=== PATIENT | male | born 1965 | race Caucasian/White ===

== ENCOUNTER 2018-06-14 18:55 | Inpatient (IN) | payer OTHER ==
[2018-06-14 20:03] VITALS: BMI 25.7
--- NOTE | 2018-06-14 22:12 | HP ---
CIWA Score Nausea/Vomitin-No Nausea/No Vomiting Muscle Tremors: 1-None Visible, but [place] Anxiety: 1-Mildly Anxious Agitation: 1-Slight > Activity Paroxysmal Sweats: 4-Forehead w/Sweat Beads Orientation: 2-Disoriented Date<2 days Tacttile Disturbances: 0-None Auditory Disturbances: 0-None Visual Disturbances: 0-None Headache: 0-None Present CIWA-Ar Total Score: 9 - Admission Criteria OASAS Guidelines: Admission for Medically Managed Detox: Requires at least one of the followin. CIWA greater than 12 2. Seizures within the past 24 hours 3. Delirium tremens within the past 24 hours 4. Hallucinations within the past 24 hours 5. Acute intervention needed for co occurring medical disorder 6. Acute intervention needed for co occurring psychiatric disorder 7. Severe withdrawal that cannot be handled at a lower level of care (continued vomiting, continued diarrhea, abnormal vital signs) requiring intravenous medication and/or fluids 8. Admission ROS [facility] Chief Complaint: c/o worsening withdrawal sx's. seeking assist w/ detox Allergies/Adverse Reactions: Allergies Allergy/AdvReac Type Severity Reaction Status Date / Time Penicillins Allergy Severe Verified 06/14/18 19:45 History of Present Illness: 53 Y.O. MALE WITH OPIOID AND ALCOHOL DEPENDENCE HERE FOR DETOX. CLIENT REPORTS HE IS ON MMTP AT [facility]. LDM TODAY 45 MG, PENDING VERIFICATION. HE PRESENTS INTOXICATED WITH C/O WORSENING WITHDRAWAL SX'S SO HE KEEP S DRINKING. CIWA IS 9/ CHAU NOW 0.249. HE DENIES HX/O SEIZURES BUT DOES ADMIT TO BLACKING OUT. DENIES HX/O SI/HI, AVH. REPORTS LONGEST CLEAN TIME 4 YEARS RELAPSING 1 YEAR AGO. LIVES ALONE, SSI, DENIES LEGALS CLIENT IS A POOR HISTORIAN DUE TO HIS INTOXICATION PMHX- HEPATITIS C NO TXMENT PSYCH- DEPRESSION, ANXIETY Exam Limitations: Intoxication - Ebola screening Have you traveled outside of the country in the last 21 days: No Have you had contact with anyone from an Ebola affected area: No Have you been sick,other than usual withdrawal symptoms: No Do you have a fever: No - Review of Systems Constitutional: Chills, Loss of Appetite, Night Sweats, Changes in sleep EENT: reports: Dental Problems (MISSING TEETH) Respiratory: reports: No Symptoms reported Cardiac: reports: No Symptoms Reported GI: reports: Poor Appetite, Poor Fluid Intake : reports: No Symptoms Reported Musculoskeletal: reports: Back Pain (CHRONIC) Integumentary: reports: Flushing, Sweating Neuro: reports: Tremors (R/T WITHDRAWALS) Endocrine: reports: No Symptoms Reported Hematology: reports: No Symptoms Reported Psychiatric: reports: Anxious, Depressed Other Systems: Reviewed and Negative Patient History - Patient Medical History Hx Anemia: No Hx Asthma: No Hx Chronic Obstructive Pulmonary Disease (COPD): No Hx Cancer: No Hx Cardiac Disorders: No Hx Congestive Heart Failure: No Hx Hypertension: No Hx Hypercholesterolemia: No Hx Pacemaker: No HX Cerebrovascular Accident: No Hx Seizures: No Hx Dementia: No Hx Diabetes: No Hx Gastrointestinal Disorders: No Hx Liver Disease: Yes (HEPATITIS C) Hx Genitourinary Disorders: No Hx Sexually Transmitted Disorders: No Hx Renal Disease (ESRD): No Hx Thyroid Disease: No Hx Human Immunodeficiency Virus (HIV): No Hx Hepatitis C: Yes Hx Depression: Yes Hx Suicide Attempt: No Hx Bipolar Disorder: No Hx Schizophrenia: No - Patient Surgical History Past Surgical History: Yes Hx Neurologic Surgery: No Hx Cataract Extraction: No Hx Cardiac Surgery: No Hx Lung Surgery: No Hx Breast Surgery: No Hx Breast Biopsy: No Hx Abdominal Surgery: No Hx Appendectomy: No Hx Cholecystectomy: No Hx Genitourinary Surgery: No Hx Section: No Hx Orthopedic Surgery: Yes (RLE AND JAW SX) Anesthesia Reaction: No - PPD History Previous Implant?: Yes Documented Results: Negative w/o proof Implanted On Prior R Admission?: No PPD to be Administered?: Yes - Smoking Cessation Smoking history: Current every day smoker Have you smoked in the past 12 months: Yes Aproximately how many cigarettes per day: 12 Cigars Per Day: 0 Hx Chewing Tobacco Use: No Initiated information on smoking cessation: Yes 'Breaking Loose' booklet given: 06/14/18 - Substance & Tx. History Hx Alcohol Use: Yes Hx Substance Use: Yes Substance Use Type: Alcohol Hx Substance Use Treatment: Yes ([facility]) - Substances Abused Alcohol Route: Oral Frequency: Daily Amount used: LIQUOR- 3 PINTS Age of first use: 10 Date of Last Use: 06/14/18 Family Disease History - Family Disease History Family Disease History: Diabetes: Mother (), Other: Mother Admission Physical Exam [facility] - Vital Signs Vital Signs: Vital Signs - 24 hr 06/14/18 19:27 Temperature 97.7 F Pulse Rate 90 Respiratory 18 Rate Blood Pressure 123/81 - Physical General Appearance: Yes: Disheveled, Mild Distress, Alcohol on Breath, Intoxicated, Tremorous, Irritable, Sweating, Anxious, Other (PRESENTS WITH NO SHIRT JUST A JACKET PERIODS OF KNODDING OFF DURING INTERVIEW) HEENTM: Yes: EOMI, Normocephalic, Normal Voice, HUMA, Pharynx Normal, Scleral Ictenus R, Scleral Ictenus L, Other (POOR DENTITION) Respiratory: Yes: Chest Non-Tender, Lungs Clear, Normal Breath Sounds, No Respiratory Distress, No Accessory Muscle Use Neck: Yes: No masses,lesions,Nodules, Supple, Trachea in good position Breast: Yes: Breast Exam Deferred Cardiology: Yes: Regular Rhythm, Regular Rate, S1, S2 Abdominal: Yes: Normal Bowel Sounds, Non Tender, Soft, Protuberent Genitourinary: Yes: Other (NO C/O OFFERED) Back: Yes: Normal Inspection Musculoskeletal: Yes: Other (UNSTEADY GAIT) Neurological: Yes: Alert (WITH PERIODS OF KNODDING OFF/EASILY AROUSABLE), Motor Strength 5/5, Confused (ABOUT DATE), Depressed Affect Integumentary: Yes: Warm, Moist, Other (FLUSHED) Lymphatic: Yes: Within Normal Limits - Diagnostic (1) Alcohol dependence with uncomplicated withdrawal Current Visit: Yes Status: Acute (2) Methadone maintenance therapy patient Current Visit: Yes Status: Chronic (3) Cannabis abuse Current Visit: Yes Status: Acute (4) Hepatitis C Current Visit: Yes Status: Chronic Qualifiers: Viral hepatitis chronicity: chronic Hepatic coma status: without hepatic coma Qualified Code(s): B18.2 - Chronic viral hepatitis C (5) Substance induced mood disorder Current Visit: Yes Status: Suspected (6) At risk for dehydration due to poor fluid intake Current Visit: Yes Status: Acute (7) Intoxication Current Visit: Yes Status: Acute (8) Nicotine dependence Current Visit: Yes Status: Acute Qualifiers: Nicotine product type: cigarettes Substance use status: uncomplicated Qualified Code(s): F17.210 - Nicotine dependence, cigarettes, uncomplicated (9) Need for assistance due to unsteady gait Current Visit: Yes Status: Acute (10) Scleral icterus Current Visit: Yes Status: Acute Cleared for Admission [facility] - Detox or Rehab [facility] Level of Care: Medically Managed Detox Regimen/Protocol: Librium Claeared for Rehab Admission: No Urine Drug Screen - Results Drug Screen Negative: No Urine Drug Screen Results: THC-Marijuana, OPI-Opiates, BZO-Benzodiazepines, MTD- Methadone
[2018-06-14] MEDS ORDERED: MAGNESIUM CITRATE 300 ML BOTTLE PO PRN (22:31)
[2018-06-14] MEDS ORDERED: guaiFENesin/D-METHORPHAN HB 10 ML UNIT-DOSE CUPS PO PRN (22:31)
[2018-06-14] MEDS ORDERED: MAGNESIUM HYDROX 2400MG/30ML ORAL SUSPENSION 30 ML CUP PO PRN (22:31)
[2018-06-14] MEDS ORDERED: chlordiazePOXIDE HCL 25 MG CAPSULE PO PRN (22:31)
[2018-06-14] MEDS ORDERED: ACETAMINOPHEN 325 MG TABLET (FP) PO PRN (22:31)
[2018-06-14] MEDS ORDERED: MAG HYDROX/AL HYDROX/SIMETH 30 ML UNIT-DOSE CUP PO PRN (22:31)
[2018-06-14] MEDS ORDERED: LOPERAMIDE HCL 2 MG CAPSULE PO PRN (22:31)
[2018-06-14] MEDS ORDERED: MENTHOL/PHENOL 1 EACH UD MM PRN (22:31)
[2018-06-14] MEDS ORDERED: IBUPROFEN 400 MG TABLET (FP) PO PRN (22:31)
[2018-06-14] MEDS ORDERED: NICOTINE POLACRILEX 2 MG GUM BC PRN (22:31)
[2018-06-14] MEDS ORDERED: P-EPHED 60MG/TRIPROLIDI 2.5MG TABLET PO PRN (22:31)
[2018-06-14] MEDS ORDERED: hydrOXYzine PAMOATE 50 MG CAPSULE (FP) PO PRN (22:31)
[2018-06-15] MEDS: chlordiazePOXIDE HCL 25 MG CAPSULE PO SCH ×4 (06:08→22:32)
[2018-06-15] MEDS: PRENATAL VITAMINS W/ FOLIC ACID TABLET (FP) PO SCH (10:08)
[2018-06-15] MEDS: NICOTINE 14 MG/24 HOURS TOPICAL PATCH TD SCH (10:11)
[2018-06-15 11:11] LABS: HEMOGLOBIN 12.3 GM/dL (11.7-16.9); MCH 32.5 pg (25.7-33.7); MCHC 32.2 g/dl (32.0-35.9); MEAN CELL VOLUME 100.9 fl (80-96); MEAN PLT VOLUME 11.7 fl (7.5-11.1); PLATELET COUNT 78 K/MM3 (134-434); RBC 3.77 M/mm3 (4.00-5.60); RDW 12.9 % (11.9-15.9); WHITE BLOOD COUNT 11.6 K/mm3 (4.0-10.0)
[2018-06-15 11:42] LABS: ALBUMIN 2.1 g/dl (3.4-5.0); ALK PHOS 134 U/L (45-117); ANION GAP 9 MMOL/L (8-16); BILIRUBIN,TOTAL 2.9 mg/dL (0.2-1); BLOOD UREA NITROGEN 14 mg/dL (7-18); CALCIUM 7.5 mg/dL (8.5-10.1); CHLORIDE 101 mmol/L (98-107); CO2 30 mmol/L (21-32); CREATININE 0.6 mg/dL (0.55-1.3); GLUCOSE,RANDOM 91 mg/dL (74-106); SGOT/AST 245 U/L (15-37); SGPT/ALT 73 U/L (13-61); SODIUM 139 mmol/L (136-145); TOT PROT 5.8 g/dl (6.4-8.2)
[2018-06-15] MEDS ORDERED: NAPROXEN 375 MG TABLET (FP) PO ONE (11:49)
[2018-06-15 13:04] LABS: POTASSIUM 2.8 mmol/L (3.5-5.1)
--- NOTE | 2018-06-15 13:28 | EKG ---
Test Reason : Blood Pressure : / mmHG Vent. Rate : 062 BPM Atrial Rate : 062 BPM P-R Int : 140 ms QRS Dur : 094 ms QT Int : 582 ms P-R-T Axes : 032 017 008 degrees QTc Int : 590 ms NORMAL SINUS RHYTHM T WAVE ABNORMALITY, CONSIDER ANTERIOR ISCHEMIA PROLONGED QT ABNORMAL ECG NO PREVIOUS ECGS AVAILABLE Confirmed by HERNAN GARCIA MD ([id number]) on 06/15/2018 1:28:24 PM Referred By: Confirmed By:HERNAN GARCIA MD
--- NOTE | 2018-06-15 13:41 | CONSULT ---
[facility] Psychiatric Consult - Data Date of interview: 06/15/18 Admission source: [facility] Identifying data: First admission to [facility] for this 53 y/o male seeking detoxification treatment, on , for alcohol dependence. Patient is single, no dependents, domiciled, unemployed and supported on SSI benefits. Substance Abuse History: Confirmed by the patient in this interview. Details in current [facility] report : Smoking history: Current every day smoker. Have you smoked in the past 12 months: Yes. Aproximately how many cigarettes per day: 12. Cigars Per Day: 0. Hx Chewing Tobacco Use: No. Initiated information on smoking cessation: Yes. 'Breaking Loose' booklet given: 06/14/18. - Substance & Tx. History. Hx Alcohol Use: Yes. Hx Substance Use: Yes. Substance Use Type : Alcohol. Hx Substance Use Treatment: Yes ([facility]). - Substances Abused. * * Alcohol. Route: Oral. Frequency: Daily. Amount used: LIQUOR- 3 PINTS. Age of first use: 10. Date of Last Use: 06/14/18 Medical History: Hepatitis C, chronic lumbar pain, history of orthosurgery ( fracture of right lower mandible) and arthritis. Psychiatric History: No reported history of psychiatric hospitalizations. Patient reports recent treatment with amitryptiline 25 mg/hs + clonazepam 1 mg/ day. Diagnosed with MDD and Anxiety Disorder. Mr Romano is also on methadone maintenance (40 mg/day) at [facility]. Admits to chronic non-adherence to psychotropic medications. Patient denies history of suicide attempts. Physical/Sexual Abuse/Trauma History: Patient denies. Additional Comment: Urine Drug Screen Results: THC-Marijuana, OPI-Opiates, BZO- Benzodiazepines, MTD-Methadone. Noted. Mental Status Exam - Mental Status Exam Alert and Oriented to: Time, Person Cognitive Function: Grossly Intact (admits to memory problems ; disoriented to place but able to answer simple questions ) Patient Appearance: Unkempt, Disheveled (ethylic smell) Mood: Nervous, Withdrawn Affect: Mood Congruent, Constricted Patient Behavior: Fatigued, Cooperative Speech Pattern: Delayed, Slurred Voice Loudness: Mildly Soft/Quiet Thought Process: Goal Oriented Thought Disorder: Not Present Hallucinations: Denies Suicidal Ideation: Denies Homicidal Ideation: Denies Insight/Judgement: Poor Sleep: Well Appetite: Good Muscle strength/Tone: Normal Gait/Station: Normal Psychiatric Findings - Problem List ([place] 1, 2,3) (1) Alcohol dependence with uncomplicated withdrawal Current Visit: Yes Status: Acute (2) Opioid dependence on agonist therapy Current Visit: Yes Status: Chronic (3) Nicotine dependence Current Visit: Yes Status: Chronic Qualifiers: Nicotine product type: cigarettes Substance use status: uncomplicated Qualified Code(s): F17.210 - Nicotine dependence, cigarettes, uncomplicated (4) Substance induced mood disorder Current Visit: Yes Status: Chronic - Initial Treatment Plan Initial Treatment Plan: Psychoeducation. Sleep hygiene. Detoxification. Support. Observation.
[2018-06-15] MEDS ORDERED: POTASSIUM CHLORIDE TABS 20 MEQ TABLET.ER (FP) PO ONE (14:12)
[2018-06-15] MEDS ORDERED: cloNIDine HCL 0.1 MG TABLET PO ONE (14:19)
--- NOTE | 2018-06-15 14:22 | PN ---
[facility] CIWA - CIWA Score Nausea/Vomitin-No Nausea/No Vomiting Muscle Tremors: 4-Moderate,w/Arms Extend Anxiety: 5 Agitation: 3 Paroxysmal Sweats: No Perspiration Orientation: 2-Disoriented Date<2 days Tacttile Disturbances: 3-Moderate Itch/Numb/Burn Auditory Disturbances: 0-None Visual Disturbances: 1-Very Mild Sensitivity Headache: 0-None Present CIWA-Ar Total Score: 18 S Progress Note (SOAP) Subjective: Tremors, Diarrhea, Body Aches. Patient reports pain in bilateral upper legs for last 4 -5 days. Patient denies pain in bilateral lower legs or feet. Patient denies any unusual urinary symptoms (burning, pain, frequency, urgency, visualization of blood in urine). Objective: PATIENT A & O X 2 (UNCERTAIN ABOUT CURRENT DAY / DATE). PATIENT OBSERVED AMBULATING ON UNIT. NO ACUTE DISTRESS. 06/15/18 14:18 Vital Signs Temperature 99.3 F 06/15/18 14:01 Pulse Rate 65 06/15/18 14:01 Respiratory Rate 18 06/15/18 14:01 Blood Pressure 154/79 06/15/18 14:01 O2 Sat by Pulse Oximetry (%) Laboratory Tests 06/15/18 06/15/18 06/15/18 07:30 07:30 07:30 WBC 11.6 H RBC 3.77 L Hgb 12.3 Hct 38.0 MCV 100.9 H MCH 32.5 MCHC 32.2 RDW 12.9 Plt Count 78 L MPV 11.7 H Sodium 139 Potassium 2.8 L* Chloride 101 Carbon Dioxide 30 Anion Gap 9 BUN 14 Creatinine 0.6 Creat Clearance w eGFR > 60 Random Glucose 91 Calcium 7.5 L Total Bilirubin 2.9 H AST 245 H ALT 73 H Alkaline Phosphatase 134 H Total Protein 5.8 L Albumin 2.1 L RPR Titer Nonreactive LABS NOTED. Assessment: 06/15/18 14:18 WITHDRAWAL SYMPTOMS. HYPOKALEMIA. LEUKOCYTOSIS. THROMBOCYTOPENIA. 06/15/18 14:22 Plan: CONTINUE DETOX. INCREASE DAILY PO FLUID INTAKE. K-DUR BID FOR HYPOKALEMIA. REPEAT K LEVEL ON 06/17/2018 TO DETERMINE EFFECT OF K -DUR ON HYPOKALEMIA. REPEAT CBC TOMORROW AM FOR LOW WBC AND PLATELET LEVELS. REPEAT AST LEVEL ON 06/17/2018 FOR ELEVATED ADMISSION LEVEL. DESPITE REPEATED ATTEMPTS BY RN TO CONTACT PATIENT'S MMTP PROGRAM ([facility]) VIA TELEPHONE TO VERIFY PATIENT'S REPORTED DAILY MMTP DOSE (45 MG), DOSE UNABLE TO BE VERIFIED TODAY. THEREFORE, STANDARD DOSE OF 20 MG PO DAILY ORDERED TEMPORARY MAINTENANCE FOR TODAY AND FOR TOMORROW (SUNDAY) UNTIL MMTP PROGRAM WILL BE AVAILABLE TO BE CONTACTED AGAIN ON SUNDAY, . PATIENT MADE AWARE. CLONIDINE, 0.1 MG PO X 1 DOSE ORDERED TO HELP EASE WITHDRAWAL SYMPTOMS AND FOR ELEVATED SYSTOLIC BP.
[2018-06-15] MEDS: METHADONE HCL 10 MG TABLET PO SCH (15:16)
[2018-06-15] MEDS: POTASSIUM CHLORIDE TABS 20 MEQ TABLET.ER (FP) PO SCH (17:22)
[2018-06-15] MEDS: NAPROXEN 375 MG TABLET (FP) PO SCH (22:32)
[2018-06-15] MEDS: THIAMINE HCL 100 MG TABLET (FP) PO SCH (22:33)
[2018-06-15] MEDS: MELATONIN 5 MG TABLETS PO PRN (22:33)
[2018-06-16] MEDS: chlordiazePOXIDE HCL 25 MG CAPSULE PO SCH ×4 (05:46→22:09)
[2018-06-16] MEDS: METHADONE HCL 10 MG TABLET PO SCH (05:46)
[2018-06-16] MEDS: POTASSIUM CHLORIDE TABS 20 MEQ TABLET.ER (FP) PO SCH ×2 (10:14→17:21)
[2018-06-16] MEDS: PRENATAL VITAMINS W/ FOLIC ACID TABLET (FP) PO SCH (10:15)
[2018-06-16] MEDS: NICOTINE 14 MG/24 HOURS TOPICAL PATCH TD SCH (10:15)
[2018-06-16] MEDS: NAPROXEN 375 MG TABLET (FP) PO SCH ×2 (10:15→22:08)
[2018-06-16 10:40] LABS: BASO % 0.9 % (0-2.0); HEMATOCRIT 38.9 % (35.4-49); HEMOGLOBIN 13.9 GM/dL (11.7-16.9); LYMPH % 22.5 % (8-40); MCH 35.3 pg (25.7-33.7); MCHC 35.7 g/dl (32.0-35.9); MEAN CELL VOLUME 99.1 fl (80-96); MEAN PLT VOLUME 12.6 fl (7.5-11.1); MONO % 5.9 % (3.8-10.2); NEUT % 68.7 % (42.8-82.8); PLATELET COUNT 96 K/MM3 (134-434); RBC 3.93 M/mm3 (4.00-5.60); RDW 13.1 % (11.9-15.9); WHITE BLOOD COUNT 8.6 K/mm3 (4.0-10.0)
--- NOTE | 2018-06-16 11:28 | EKG ---
Test Reason : Blood Pressure : / mmHG Vent. Rate : 050 BPM Atrial Rate : 050 BPM P-R Int : 144 ms QRS Dur : 092 ms QT Int : 558 ms P-R-T Axes : 034 014 014 degrees QTc Int : 508 ms SINUS BRADYCARDIA PROLONGED QT ABNORMAL ECG WHEN COMPARED WITH ECG OF 15-JUN-2018 06:22, T WAVE INVERSION NO LONGER EVIDENT IN ANTERIOR LEADS QT HAS SHORTENED Confirmed by JOSE HERMOSILLO, HERNAN ([id number]) on 06/16/2018 11:28:00 AM Referred By: Confirmed By:HERNAN GARCIA MD
--- NOTE | 2018-06-16 12:53 | PN ---
[facility] CIWA - CIWA Score Nausea/Vomitin-Mild Nausea/No Vomiting Muscle Tremors: 3 Anxiety: 3 Agitation: 3 Paroxysmal Sweats: 3 Orientation: 0-Oriented Tacttile Disturbances: 0-None Auditory Disturbances: 0-None Visual Disturbances: 0-None Headache: 0-None Present CIWA-Ar Total Score: 13 [facility] Progress Note (SOAP) Subjective: Chills, sweating, tremor, interrupted sleep Objective: 06/16/18 12:48 Last Vital Signs Temp Pulse Resp BP Pulse Ox 97.6 F 50 L 18 153/89 06/16/18 09:50 06/16/18 09:50 06/16/18 09:50 06/16/18 09:50 elevated b/p noted: 153/89 Laboratory Tests 06/15/18 06/15/18 06/15/18 07:30 07:30 07:30 WBC 11.6 H RBC 3.77 L Hgb 12.3 Hct 38.0 MCV 100.9 H MCH 32.5 MCHC 32.2 RDW 12.9 Plt Count 78 L MPV 11.7 H Absolute Neuts (auto) Neutrophils % Lymphocytes % Monocytes % Eosinophils % Basophils % Nucleated RBC % Sodium 139 Potassium 2.8 L* Chloride 101 Carbon Dioxide 30 Anion Gap 9 BUN 14 Creatinine 0.6 Creat Clearance w eGFR > 60 Random Glucose 91 Calcium 7.5 L Total Bilirubin 2.9 H AST 245 H ALT 73 H Alkaline Phosphatase 134 H Total Protein 5.8 L Albumin 2.1 L RPR Titer Nonreactive 06/16/18 07:30 WBC 8.6 RBC 3.93 L Hgb 13.9 Hct 38.9 MCV 99.1 H MCH 35.3 H MCHC 35.7 RDW 13.1 Plt Count 96 L D MPV 12.6 H Absolute Neuts (auto) 5.9 Neutrophils % 68.7 Lymphocytes % 22.5 Monocytes % 5.9 Eosinophils % 2.0 Basophils % 0.9 Nucleated RBC % 0 Sodium Potassium Chloride Carbon Dioxide Anion Gap BUN Creatinine Creat Clearance w eGFR Random Glucose Calcium Total Bilirubin AST ALT Alkaline Phosphatase Total Protein Albumin RPR Titer Labs reviewed: K 2.8, AST 245, total bilirubin 2.9 Assessment: 06/16/18 12:50 Withdrawal symptoms Noted with elevated blood pressure, hypokalemia and elevated LFTs (AST, total bilirubin) Plan: Continue detox Encouraged PO water intake Elevated blood pressure: clonidine 0.1mg PO q8hr prn if b/p > 140/90 Hypokalemia: continue replenishment, follow up on repeated serum K level Elevated LFTs (AST, total bilirubin): most likely related to alcohol dependence , repeat AST level (already ordered), repeat total bilirubin level, follow up on result
[2018-06-16] MEDS ORDERED: cloNIDine HCL 0.1 MG TABLET PO PRN (12:55)
[2018-06-16] MEDS: THIAMINE HCL 100 MG TABLET (FP) PO SCH (22:07)
[2018-06-16] MEDS: MELATONIN 5 MG TABLETS PO PRN (22:09)
[2018-06-17] MEDS: chlordiazePOXIDE 5 MG CAPSULE PO SCH ×4 (05:06→22:18)
[2018-06-17] MEDS ORDERED: METHADONE HCL 40 MG DISPERSABLE TABLET ONE (09:32)
[2018-06-17] MEDS ORDERED: METHADONE HCL 5 MG TABLET ONE (09:33)
[2018-06-17] MEDS ORDERED: METHADONE HCL 10 MG TABLET PO ONE (10:00)
[2018-06-17] MEDS ORDERED: METHADONE 40 MG, METHADONE 5 MG PO ONE (10:00)
[2018-06-17] MEDS: NAPROXEN 375 MG TABLET (FP) PO SCH ×2 (10:19→22:17)
[2018-06-17] MEDS: PRENATAL VITAMINS W/ FOLIC ACID TABLET (FP) PO SCH (10:19)
[2018-06-17] MEDS: POTASSIUM CHLORIDE TABS 20 MEQ TABLET.ER (FP) PO SCH (10:19)
[2018-06-17] MEDS: NICOTINE 14 MG/24 HOURS TOPICAL PATCH TD SCH (10:23)
[2018-06-17 10:37] LABS: URINE APPEARANCE CLEAR; URINE COLOR AMBER; URINE GLUCOSE (UA) NEGATIVE (NEGATIVE); URINE KETONE NEGATIVE (NEGATIVE); URINE LEUK ESTERASE NEGATIVE (NEGATIVE); URINE NITRITE NEGATIVE (NEGATIVE); URINE PROTEIN NEGATIVE (NEGATIVE); URINE UROBILINOGEN 4.0 E.U/dl mg/dL (0.2-1.0)
--- NOTE | 2018-06-17 11:19 | PN ---
S Progress Note (SOAP) Subjective: feeling better sleep better at night tremor sweat muscle cramping Objective: 06/17/18 11:17 Vital Signs Temperature 96.8 F L 06/17/18 09:19 Pulse Rate 62 06/17/18 09:19 Respiratory Rate 18 06/17/18 09:19 Blood Pressure 130/83 06/17/18 09:19 O2 Sat by Pulse Oximetry (%) Laboratory Last Values WBC 8.6 K/mm3 (4.0-10.0) 06/16/18 07:30 RBC 3.93 M/mm3 (4.00-5.60) L 06/16/18 07:30 Hgb 13.9 GM/dL (11.7-16.9) 06/16/18 07:30 Hct 38.9 % (35.4-49) 06/16/18 07:30 MCV 99.1 fl (80-96) H 06/16/18 07:30 MCH 35.3 pg (25.7-33.7) H 06/16/18 07:30 MCHC 35.7 g/dl (32.0-35.9) 06/16/18 07:30 RDW 13.1 % (11.9-15.9) 06/16/18 07:30 Plt Count 96 K/MM3 (134-434) L D 06/16/18 07:30 MPV 12.6 fl (7.5-11.1) H 06/16/18 07:30 Absolute Neuts (auto) 5.9 K/mm3 (1.5-8.0) 06/16/18 07:30 Neutrophils % 68.7 % (42.8-82.8) 06/16/18 07:30 Lymphocytes % 22.5 % (8-40) 06/16/18 07:30 Monocytes % 5.9 % (3.8-10.2) 06/16/18 07:30 Eosinophils % 2.0 % (0-4.5) 06/16/18 07:30 Basophils % 0.9 % (0-2.0) 06/16/18 07:30 Nucleated RBC % 0 % (0-0) 06/16/18 07:30 Sodium 139 mmol/L (136-145) 06/15/18 07:30 Potassium 3.6 mmol/L (3.5-5.1) 06/17/18 07:30 Chloride 101 mmol/L (98-107) 06/15/18 07:30 Carbon Dioxide 30 mmol/L (21-32) 06/15/18 07:30 Anion Gap 9 MMOL/L (8-16) 06/15/18 07:30 BUN 14 mg/dL (7-18) 06/15/18 07:30 Creatinine 0.6 mg/dL (0.55-1.3) 06/15/18 07:30 Creat Clearance w eGFR > 60 (>60) 06/15/18 07:30 Random Glucose 91 mg/dL (74-106) 06/15/18 07:30 Calcium 7.5 mg/dL (8.5-10.1) L 06/15/18 07:30 Total Bilirubin 4.0 mg/dL (0.2-1) H 06/17/18 07:30 AST 189 U/L (15-37) H 06/17/18 07:30 ALT 73 U/L (13-61) H 06/15/18 07:30 Alkaline Phosphatase 134 U/L (45-117) H 06/15/18 07:30 Total Protein 5.8 g/dl (6.4-8.2) L 06/15/18 07:30 Albumin 2.1 g/dl (3.4-5.0) L 06/15/18 07:30 Urine Color [place] 06/17/18 07:30 Urine Appearance Clear 06/17/18 07:30 Urine pH 7.0 (5.0-8.0) 06/17/18 07:30 Ur Specific [place] 1.016 (1.010-1.035) 06/17/18 07:30 Urine Protein Negative (NEGATIVE) 06/17/18 07:30 Urine Glucose (UA) Negative (NEGATIVE) 06/17/18 07:30 Urine Ketones Negative (NEGATIVE) 06/17/18 07:30 Urine Blood Negative (NEGATIVE) 06/17/18 07:30 Urine Nitrite Negative (NEGATIVE) 06/17/18 07:30 Urine Bilirubin 2.0 (<2.0 mg/dL) 06/17/18 07:30 Urine Urobilinogen 4.0 e.u/dl mg/dL (0.2-1.0) 06/17/18 07:30 Ur Leukocyte Esterase Negative (NEGATIVE) 06/17/18 07:30 RPR Titer Nonreactive (NONREACTIVE) 06/15/18 07:30 lab noted low calcium Assessment: 06/17/18 11:19 mild withdrawal sx Plan: medically supervised detox
[2018-06-17] MEDS: CALCIUM 250MG/VIT-D 125 UNITS 1 COMBO TABLET PO SCH ×2 (14:21→22:18)
[2018-06-17] MEDS: THIAMINE HCL 100 MG TABLET (FP) PO SCH (22:17)
[2018-06-17] MEDS: MELATONIN 5 MG TABLETS PO PRN (22:18)
[2018-06-18] MEDS ORDERED: METHADONE HCL 40 MG DISPERSABLE TABLET ONE (04:15)
[2018-06-18] MEDS ORDERED: METHADONE HCL 5 MG TABLET ONE (04:15)
[2018-06-18] MEDS: chlordiazePOXIDE HCL 10 MG CAPSULE PO SCH ×4 (05:09→22:20)
[2018-06-18] MEDS: METHADONE 40 MG, METHADONE 5 MG PO SCH (05:10)
[2018-06-18] MEDS ORDERED: METHADONE HCL 10 MG TABLET PO SCH (06:00)
[2018-06-18] MEDS: PRENATAL VITAMINS W/ FOLIC ACID TABLET (FP) PO SCH (10:10)
[2018-06-18] MEDS: POTASSIUM CHLORIDE TABS 20 MEQ TABLET.ER (FP) PO SCH (10:11)
[2018-06-18] MEDS: CALCIUM 250MG/VIT-D 125 UNITS 1 COMBO TABLET PO SCH ×2 (10:11→22:20)
[2018-06-18] MEDS: NICOTINE 14 MG/24 HOURS TOPICAL PATCH TD SCH (10:11)
[2018-06-18] MEDS: NAPROXEN 375 MG TABLET (FP) PO SCH ×2 (10:12→22:20)
--- NOTE | 2018-06-18 15:15 | PN ---
[facility] Progress Note (SOAP) Subjective: Body Aches, Tremors. Patient reports that he feels significantly better at this time than he did at time of admission to Detox Unit. Objective: PATIENT A & O X 3, OBSERVED AMBULATING ON UNIT WITH ASSISTANCE OF A CANE. IN NO ACUTE DISTRESS. 06/18/18 15:17 Vital Signs Temperature 97.6 F 06/18/18 13:22 Pulse Rate 52 L 06/18/18 13:22 Respiratory Rate 20 06/18/18 13:22 Blood Pressure 135/76 06/18/18 13:22 O2 Sat by Pulse Oximetry (%) Laboratory Tests 06/15/18 06/15/18 06/15/18 07:30 07:30 07:30 WBC 11.6 H RBC 3.77 L Hgb 12.3 Hct 38.0 MCV 100.9 H MCH 32.5 MCHC 32.2 RDW 12.9 Plt Count 78 L MPV 11.7 H Absolute Neuts (auto) Neutrophils % Lymphocytes % Monocytes % Eosinophils % Basophils % Nucleated RBC % Sodium 139 Potassium 2.8 L* Chloride 101 Carbon Dioxide 30 Anion Gap 9 BUN 14 Creatinine 0.6 Creat Clearance w eGFR > 60 Random Glucose 91 Calcium 7.5 L Total Bilirubin 2.9 H AST 245 H ALT 73 H Alkaline Phosphatase 134 H Total Protein 5.8 L Albumin 2.1 L Urine Color Urine Appearance Urine pH Ur Specific [place] Urine Protein Urine Glucose (UA) Urine Ketones Urine Blood Urine Nitrite Urine Bilirubin Urine Urobilinogen Ur Leukocyte Esterase RPR Titer Nonreactive 06/16/18 06/17/18 06/17/18 07:30 07:30 07:30 WBC 8.6 RBC 3.93 L Hgb 13.9 Hct 38.9 MCV 99.1 H MCH 35.3 H MCHC 35.7 RDW 13.1 Plt Count 96 L D MPV 12.6 H Absolute Neuts (auto) 5.9 Neutrophils % 68.7 Lymphocytes % 22.5 Monocytes % 5.9 Eosinophils % 2.0 Basophils % 0.9 Nucleated RBC % 0 Sodium Potassium 3.6 Chloride Carbon Dioxide Anion Gap BUN Creatinine Creat Clearance w eGFR Random Glucose Calcium Total Bilirubin 4.0 H AST 189 H ALT Alkaline Phosphatase Total Protein Albumin Urine Color Urine Appearance Urine pH Ur Specific [place] Urine Protein Urine Glucose (UA) Urine Ketones Urine Blood Urine Nitrite Urine Bilirubin Urine Urobilinogen Ur Leukocyte Esterase RPR Titer 06/17/18 06/17/18 07:30 07:30 WBC RBC Hgb Hct MCV MCH MCHC RDW Plt Count MPV Absolute Neuts (auto) Neutrophils % Lymphocytes % Monocytes % Eosinophils % Basophils % Nucleated RBC % Sodium Potassium Chloride Carbon Dioxide Anion Gap BUN Creatinine Creat Clearance w eGFR Random Glucose Calcium Total Bilirubin Cancelled AST ALT Alkaline Phosphatase Total Protein Albumin Urine Color [place] Urine Appearance Clear Urine pH 7.0 Ur Specific [place] 1.016 Urine Protein Negative Urine Glucose (UA) Negative Urine Ketones Negative Urine Blood Negative Urine Nitrite Negative Urine Bilirubin 2.0 Urine Urobilinogen 4.0 e.u/dl Ur Leukocyte Esterase Negative RPR Titer LABS NOTED. Assessment: 06/18/18 15:18 WITHDRAWAL SYMPTOMS. Plan: CONTINUE DETOX.
[2018-06-18] MEDS: THIAMINE HCL 100 MG TABLET (FP) PO SCH (22:20)
[2018-06-18] MEDS: MELATONIN 5 MG TABLETS PO PRN (22:21)
[2018-06-19] MEDS ORDERED: METHADONE HCL 40 MG DISPERSABLE TABLET ONE (04:17)
[2018-06-19] MEDS ORDERED: METHADONE HCL 5 MG TABLET ONE (04:17)
[2018-06-19] MEDS: METHADONE 40 MG, METHADONE 5 MG PO SCH (05:11)
--- NOTE | 2018-06-19 09:22 | DS ---
[facility] Detox Discharge Summary Admission Date: 06/14/18 Discharge Date: 06/19/18 - History Present History: Alcohol Dependence Additional Comments: 53 years old male admitted on 06/14/18 for alcohol withdrawal stabilization completed alcohol detox regimen tolerated well alert ambulate with cane no acute distress aftercare [facility] - Physical Exam Results Vital Signs: Vital Signs Temperature 97.2 F L 06/19/18 06:05 Pulse Rate 55 L 06/19/18 06:05 Respiratory Rate 16 06/19/18 06:05 Blood Pressure 140/83 06/19/18 06:05 O2 Sat by Pulse Oximetry (%) Pertinent Admission Physical Exam Findings: alcohol withdrawal sx Vital Signs Temperature 97.2 F L 06/19/18 06:05 Pulse Rate 55 L 06/19/18 06:05 Respiratory Rate 16 06/19/18 06:05 Blood Pressure 140/83 06/19/18 06:05 O2 Sat by Pulse Oximetry (%) Laboratory Last Values WBC 8.6 K/mm3 (4.0-10.0) 06/16/18 07:30 RBC 3.93 M/mm3 (4.00-5.60) L 06/16/18 07:30 Hgb 13.9 GM/dL (11.7-16.9) 06/16/18 07:30 Hct 38.9 % (35.4-49) 06/16/18 07:30 MCV 99.1 fl (80-96) H 06/16/18 07:30 MCH 35.3 pg (25.7-33.7) H 06/16/18 07:30 MCHC 35.7 g/dl (32.0-35.9) 06/16/18 07:30 RDW 13.1 % (11.9-15.9) 06/16/18 07:30 Plt Count 96 K/MM3 (134-434) L D 06/16/18 07:30 MPV 12.6 fl (7.5-11.1) H 06/16/18 07:30 Absolute Neuts (auto) 5.9 K/mm3 (1.5-8.0) 06/16/18 07:30 Neutrophils % 68.7 % (42.8-82.8) 06/16/18 07:30 Lymphocytes % 22.5 % (8-40) 06/16/18 07:30 Monocytes % 5.9 % (3.8-10.2) 06/16/18 07:30 Eosinophils % 2.0 % (0-4.5) 06/16/18 07:30 Basophils % 0.9 % (0-2.0) 06/16/18 07:30 Nucleated RBC % 0 % (0-0) 06/16/18 07:30 Sodium 139 mmol/L (136-145) 06/15/18 07:30 Potassium 3.6 mmol/L (3.5-5.1) 06/17/18 07:30 Chloride 101 mmol/L (98-107) 06/15/18 07:30 Carbon Dioxide 30 mmol/L (21-32) 06/15/18 07:30 Anion Gap 9 MMOL/L (8-16) 06/15/18 07:30 BUN 14 mg/dL (7-18) 06/15/18 07:30 Creatinine 0.6 mg/dL (0.55-1.3) 06/15/18 07:30 Creat Clearance w eGFR > 60 (>60) 06/15/18 07:30 Random Glucose 91 mg/dL (74-106) 06/15/18 07:30 Calcium 7.5 mg/dL (8.5-10.1) L 06/15/18 07:30 Total Bilirubin 4.0 mg/dL (0.2-1) H 06/17/18 07:30 AST 189 U/L (15-37) H 06/17/18 07:30 ALT 73 U/L (13-61) H 06/15/18 07:30 Alkaline Phosphatase 134 U/L (45-117) H 06/15/18 07:30 Total Protein 5.8 g/dl (6.4-8.2) L 06/15/18 07:30 Albumin 2.1 g/dl (3.4-5.0) L 06/15/18 07:30 Urine Color [place] 06/17/18 07:30 Urine Appearance Clear 06/17/18 07:30 Urine pH 7.0 (5.0-8.0) 06/17/18 07:30 Ur Specific [place] 1.016 (1.010-1.035) 06/17/18 07:30 Urine Protein Negative (NEGATIVE) 06/17/18 07:30 Urine Glucose (UA) Negative (NEGATIVE) 06/17/18 07:30 Urine Ketones Negative (NEGATIVE) 06/17/18 07:30 Urine Blood Negative (NEGATIVE) 06/17/18 07:30 Urine Nitrite Negative (NEGATIVE) 06/17/18 07:30 Urine Bilirubin 2.0 (<2.0 mg/dL) 06/17/18 07:30 Urine Urobilinogen 4.0 e.u/dl mg/dL (0.2-1.0) 06/17/18 07:30 Ur Leukocyte Esterase Negative (NEGATIVE) 06/17/18 07:30 RPR Titer Nonreactive (NONREACTIVE) 06/15/18 07:30 lab noted - Treatment Hospital Course: Detox Protocol Followed, Detoxed Safely, Responded well, Discharged Condition Good, Rehab Referral Accepted Patient has Accepted a Rehab Referral to: [facility] - Medication Discharge Medications: Ambulatory Orders Amitriptyline HCl [Elavil -] 25 mg PO DAILY 06/14/18 clonazePAM [Klonopin -] 1 mg PO DAILY 06/14/18 - Diagnosis (1) Hepatitis C Current Visit: Yes Status: Chronic Qualifiers: Viral hepatitis chronicity: chronic Hepatic coma status: without hepatic coma Qualified Code(s): B18.2 - Chronic viral hepatitis C (2) Methadone maintenance therapy patient Current Visit: Yes Status: Chronic (3) Nicotine dependence Current Visit: Yes Status: Acute Qualifiers: Nicotine product type: cigarettes Substance use status: in withdrawal Qualified Code(s): F17.213 - Nicotine dependence, cigarettes, with withdrawal (4) Substance induced mood disorder Current Visit: Yes Status: Suspected - AMA Did Patient Leave Against Medical Advice: No
[2018-06-19] MEDS: PRENATAL VITAMINS W/ FOLIC ACID TABLET (FP) PO SCH (10:37)
[2018-06-19] MEDS: POTASSIUM CHLORIDE TABS 20 MEQ TABLET.ER (FP) PO SCH (10:37)
[2018-06-19] MEDS: CALCIUM 250MG/VIT-D 125 UNITS 1 COMBO TABLET PO SCH (10:37)
[2018-06-19] MEDS: NICOTINE 14 MG/24 HOURS TOPICAL PATCH TD SCH (10:38)
[2018-06-19] MEDS: NAPROXEN 375 MG TABLET (FP) PO SCH (10:38)
[2018-06-19 10:53] VITALS: BP 116/81; PULSE 75; TEMP 98.6
== END 2018-06-19 12:34 | disposition other institution (70) | DRG 775 ==
LOC: YASAS 18:55 → Y3N 22:35
PROC: HZ2ZZZZ Detoxification Services for Substance Abuse Treatment (ICD-10-PCS; principal; 2018-06-14)
DX: F10.230 Alcohol dependence with withdrawal, uncomplicated (principal); F10.220 Alcohol dependence with intoxication, uncomplicated; F12.10 Cannabis abuse, uncomplicated; F17.213 Nicotine dependence, cigarettes, with withdrawal; F19.24 Other psychoactive substance dependence with psychoactive substance-induced mood disorder; F41.8 Other specified anxiety disorders; B18.2 Chronic viral hepatitis C; R63.8 Other symptoms and signs concerning food and fluid intake; R26.2 Difficulty in walking, not elsewhere classified; E87.6 Hypokalemia; D72.829 Elevated white blood cell count, unspecified; D69.6 Thrombocytopenia, unspecified; H15.89 Other disorders of sclera; R03.0 Elevated blood-pressure reading, without diagnosis of hypertension; R94.5 Abnormal results of liver function studies; Z88.0 Allergy status to penicillin
CPT/HCPCS: 36415; 80053; 81003; 82247; 84132; 84450; 85025; 85027; 86593; 93005; 93010; J0735

== ENCOUNTER 2018-06-19 13:09 | Inpatient (IN) | payer OTHER ==
--- NOTE | 2018-06-19 13:12 | HP ---
KERRY HERMOSILLO Rehab Assess/Revision - Admission History Admitted to Rehab from: [facility] Date of Admission to Rehab: 06/19/18 - Findings Detox History & Physical reviewed: Yes Concur with findings: Yes Comments/Additional Findings: transferred from detox to rehab admission as per protocol Inpatient Rehab Admission - Initial Determination Are CD services needed?: Yes Free of communicable disease: Yes Not in need of hospitalization: Yes - Rehab Admission Criteria Previous failed treatment: Yes Poor recovery environment: Yes Comorbidities: Yes Lacks judgement: No Patient is meeting Inpatient Rehab admission criteria:: Yes
[2018-06-19] MEDS ORDERED: MENTHOL/PHENOL 1 EACH UD MM PRN (13:13)
[2018-06-19] MEDS ORDERED: MAGNESIUM CITRATE 300 ML BOTTLE PO PRN (13:13)
[2018-06-19] MEDS ORDERED: MAGNESIUM HYDROX 2400MG/30ML ORAL SUSPENSION 30 ML CUP PO PRN (13:13)
[2018-06-19] MEDS ORDERED: P-EPHED 60MG/TRIPROLIDI 2.5MG TABLET PO PRN (13:13)
[2018-06-19] MEDS ORDERED: NICOTINE POLACRILEX 2 MG GUM BUC PRN (13:13)
[2018-06-19] MEDS ORDERED: guaiFENesin/D-METHORPHAN HB 10 ML UNIT-DOSE CUPS PO PRN (13:13)
[2018-06-19] MEDS ORDERED: NICOTINE 14 MG/24 HOURS TOPICAL PATCH TD PRN (14:15)
--- NOTE | 2018-06-19 14:55 | PN ---
S Progress Note Note: Called by nursing staff to order medication for newly admitted patient from detox. Amitryptiline 25 mg po HS ordered for patient pending admission evaluation
[2018-06-19] MEDS: THIAMINE HCL 100 MG TABLET (FP) PO SCH (21:32)
[2018-06-19] MEDS: AMITRIPTYLINE HCL 25 MG TABLET (FP) PO SCH (21:32)
[2018-06-19] MEDS: CALCIUM 250MG/VIT-D 125 UNITS 1 COMBO TABLET PO SCH (21:32)
[2018-06-19] MEDS: MELATONIN 5 MG TABLETS PO PRN (21:33)
[2018-06-20] MEDS ORDERED: METHADONE HCL 5 MG TABLET ONE (04:07)
[2018-06-20] MEDS ORDERED: METHADONE HCL 40 MG DISPERSABLE TABLET ONE (04:08)
[2018-06-20] MEDS: METHADONE 40 MG, METHADONE 5 MG PO SCH (06:39)
--- NOTE | 2018-06-20 08:04 | HP ---
Psychiatrist Admission - Data Date of interview: 06/20/18 Admission source: 3N Identifying data: This is the first [facility] admission for this 53 years old single male, unemployed on SSI, domiciled Medical History: Significant for hepatitis C, chronic lumbar pain, arthritis and history of orthosurgery (fracture of right lower mandible).Patient is on methadone 45 mg/day. Smokes 10-12cigarettes daily Psychiatric History: Patient reports being diagnosed with Bipolar Disorder, depression and anxiety approximately 10-12 years ago. Reports receiving psychiatric outpatient services at [facility] in [place] and he is prescribed Klonopin 1 mg po TID, Amitryptiline 25 mg po HS and Risperdal 1 mg po BID. Claims he last attended the clinic 1.5 month ago. Told bond underwriter that his chronic non adherence to treatment is due to the fact that clinic is too far. According to pharmacy claim, scripts for Clonazepam was last filled on 02/21/18 and for Risperdal 1 mg#60 & Amitryptiline 25 mg#60 on 03/15/18. He was seen by Dr Guerra on 06/15/18 while in detox and he was not prescribed any psycotropic medications. Now he only wants to take Amitryptile 25 mg po HS for insomnia. Denies history of suicidal attempt. At present, reports feeling depressed and sleeping poorly Physical/Sexual Abuse/Trauma History: Denies history of emotional, physical or sexuall abuse as wel as DV relationship. No service Additional Comment: Reports history of multiple previous arrests including 3 felony convictions on charges of assault, gun possession and drug sale. Denies being on parole/probation at present Vital Signs: Vital Signs - 24 hr 06/19/18 06/20/18 06/20/18 13:12 00:30 03:30 Temperature 98.3 F Pulse Rate 61 Respiratory 18 18 18 Rate Blood Pressure 109/67 06/20/18 06:59 Temperature 98.5 F Pulse Rate 59 L Respiratory 18 Rate Blood Pressure 149/81 Allergies/Adverse Reactions: Allergies Allergy/AdvReac Type Severity Reaction Status Date / Time Penicillins Allergy Severe Rash Verified 06/19/18 13:20 Date of last physical exam: 06/14/18 Concur with the findings of this exam: Yes - Substance Abuse/Tx History Hx Alcohol Use: Yes Hx Substance Use: No Substance Use Type: Alcohol (Started drinking alcohol at age 10, consumes 3 pints of liquor daily. Last drank on 06/14/18) Hx Substance Use Treatment: Yes (Currently attends [facility]) Mental Status Exam - Mental Status Exam Alert and Oriented to: Time Cognitive Function: Fair Patient Appearance: Well Groomed Mood: Depressed Affect: Appropriate Patient Behavior: Cooperative Speech Pattern: Clear Voice Loudness: Normal Thought Disorder: Not Present Hallucinations: Denies Suicidal Ideation: Denies Homicidal Ideation: Denies Insight/Judgement: Fair Sleep: Poorly Appetite: Poor Muscle strength/Tone: Normal Gait/Station: Normal Psychiatric Findings - Problem List ([place] 1, 2,3) (1) Alcohol dependence Current Visit: Yes Status: Acute (2) Opioid dependence on agonist therapy Current Visit: No Status: Chronic (3) Nicotine dependence Current Visit: No Status: Chronic Qualifiers: Nicotine product type: cigarettes Substance use status: in withdrawal Qualified Code(s): F17.213 - Nicotine dependence, cigarettes, with withdrawal (4) Mood disorder Current Visit: Yes Status: Chronic (5) Bipolar disorder Current Visit: Yes Status: Ruled-out (6) Alcohol-induced mood disorder Current Visit: Yes Status: Acute (7) Alcohol-induced sleep disorder Current Visit: Yes Status: Acute (8) Hepatitis C Current Visit: No Status: Chronic Qualifiers: Viral hepatitis chronicity: chronic Hepatic coma status: without hepatic coma Qualified Code(s): B18.2 - Chronic viral hepatitis C - Initial Treatment Plan Initial Treatment Plan: 1) Start Amitryptiline 25 mg po HS. 2) Monitor progress
[2018-06-20] MEDS ORDERED: METHADONE HCL 40 MG DISPERSABLE TABLET PO SCH (10:00)
[2018-06-20] MEDS: CALCIUM 250MG/VIT-D 125 UNITS 1 COMBO TABLET PO SCH ×2 (10:22→21:28)
[2018-06-20] MEDS: PRENATAL VITAMINS W/ FOLIC ACID TABLET (FP) PO SCH (10:22)
[2018-06-20] MEDS: IBUPROFEN 400 MG TABLET (FP) PO PRN (10:23)
[2018-06-20] MEDS: AMITRIPTYLINE HCL 25 MG TABLET (FP) PO SCH (21:28)
[2018-06-20] MEDS: MELATONIN 5 MG TABLETS PO PRN (21:28)
[2018-06-20] MEDS: THIAMINE HCL 100 MG TABLET (FP) PO SCH (21:28)
[2018-06-21] MEDS ORDERED: METHADONE HCL 40 MG DISPERSABLE TABLET ONE (03:10)
[2018-06-21] MEDS ORDERED: METHADONE HCL 5 MG TABLET ONE (03:10)
[2018-06-21] MEDS: METHADONE 40 MG, METHADONE 5 MG PO SCH (06:27)
[2018-06-21] MEDS: CALCIUM 250MG/VIT-D 125 UNITS 1 COMBO TABLET PO SCH ×2 (10:26→21:35)
[2018-06-21] MEDS: PRENATAL VITAMINS W/ FOLIC ACID TABLET (FP) PO SCH (10:26)
[2018-06-21] MEDS: MELATONIN 5 MG TABLETS PO PRN (21:35)
[2018-06-21] MEDS: THIAMINE HCL 100 MG TABLET (FP) PO SCH (21:35)
[2018-06-21] MEDS: AMITRIPTYLINE HCL 25 MG TABLET (FP) PO SCH (21:35)
[2018-06-22] MEDS ORDERED: METHADONE HCL 40 MG DISPERSABLE TABLET ONE (04:30)
[2018-06-22] MEDS ORDERED: METHADONE HCL 5 MG TABLET ONE (04:30)
[2018-06-22] MEDS: METHADONE 40 MG, METHADONE 5 MG PO SCH (06:23)
[2018-06-22] MEDS: CALCIUM 250MG/VIT-D 125 UNITS 1 COMBO TABLET PO SCH ×2 (10:23→21:26)
[2018-06-22] MEDS: PRENATAL VITAMINS W/ FOLIC ACID TABLET (FP) PO SCH (10:23)
[2018-06-22] MEDS: LOPERAMIDE HCL 2 MG CAPSULE PO PRN ×2 (15:02→21:27)
[2018-06-22] MEDS: AMITRIPTYLINE HCL 25 MG TABLET (FP) PO SCH (21:26)
[2018-06-22] MEDS: THIAMINE HCL 100 MG TABLET (FP) PO SCH (21:26)
[2018-06-23] MEDS ORDERED: METHADONE HCL 5 MG TABLET ONE (03:37)
[2018-06-23] MEDS ORDERED: METHADONE HCL 40 MG DISPERSABLE TABLET ONE (03:38)
[2018-06-23] MEDS: METHADONE 40 MG, METHADONE 5 MG PO SCH (06:33)
[2018-06-23] MEDS: CALCIUM 250MG/VIT-D 125 UNITS 1 COMBO TABLET PO SCH ×2 (09:53→21:39)
[2018-06-23] MEDS: PRENATAL VITAMINS W/ FOLIC ACID TABLET (FP) PO SCH (09:53)
[2018-06-23] MEDS: LOPERAMIDE HCL 2 MG CAPSULE PO PRN ×2 (09:54→21:41)
[2018-06-23] MEDS: AMITRIPTYLINE HCL 25 MG TABLET (FP) PO SCH (21:39)
[2018-06-23] MEDS: THIAMINE HCL 100 MG TABLET (FP) PO SCH (21:40)
[2018-06-24] MEDS ORDERED: METHADONE HCL 5 MG TABLET ONE (03:53)
[2018-06-24] MEDS ORDERED: METHADONE HCL 40 MG DISPERSABLE TABLET ONE (03:54)
[2018-06-24] MEDS: METHADONE 40 MG, METHADONE 5 MG PO SCH (06:27)
[2018-06-24] MEDS: CALCIUM 250MG/VIT-D 125 UNITS 1 COMBO TABLET PO SCH ×2 (10:17→21:38)
[2018-06-24] MEDS: PRENATAL VITAMINS W/ FOLIC ACID TABLET (FP) PO SCH (10:17)
--- NOTE | 2018-06-24 16:03 | PN ---
S Progress Note Note: C/O DIARRHEA NOT RELIEVED WITH IMODIUM Vital Signs - 24 hr 06/24/18 06/24/18 06/24/18 00:30 03:30 07:11 Temperature 98.7 F Pulse Rate 107 H Respiratory 16 16 16 Rate Blood Pressure 125/78 06/24/18 07:13 Temperature 98.7 F Pulse Rate 107 H Respiratory 16 Rate Blood Pressure 125/78 PLAN:LOMOTIL DIRECTED
[2018-06-24] MEDS: DIPHENOXYLATE 2.5/ATROPINE.025 1 COMBO TABLET PO PRN (16:17)
[2018-06-24] MEDS: AMITRIPTYLINE HCL 25 MG TABLET (FP) PO SCH (21:36)
[2018-06-24] MEDS: THIAMINE HCL 100 MG TABLET (FP) PO SCH (21:37)
[2018-06-25] MEDS ORDERED: METHADONE HCL 5 MG TABLET ONE (04:30)
[2018-06-25] MEDS ORDERED: METHADONE HCL 40 MG DISPERSABLE TABLET ONE (04:31)
[2018-06-25] MEDS: METHADONE 40 MG, METHADONE 5 MG PO SCH (06:13)
[2018-06-25] MEDS: DIPHENOXYLATE 2.5/ATROPINE.025 1 COMBO TABLET PO PRN (06:15)
[2018-06-25] MEDS: PRENATAL VITAMINS W/ FOLIC ACID TABLET (FP) PO SCH (10:30)
[2018-06-25] MEDS: CALCIUM 250MG/VIT-D 125 UNITS 1 COMBO TABLET PO SCH ×2 (10:30→21:38)
[2018-06-25] MEDS: AMITRIPTYLINE HCL 25 MG TABLET (FP) PO SCH (21:38)
[2018-06-25] MEDS: THIAMINE HCL 100 MG TABLET (FP) PO SCH (21:38)
[2018-06-25] MEDS: IBUPROFEN 400 MG TABLET (FP) PO PRN (22:29)
[2018-06-26] MEDS ORDERED: METHADONE HCL 5 MG TABLET ONE (04:04)
[2018-06-26] MEDS ORDERED: METHADONE HCL 40 MG DISPERSABLE TABLET ONE (04:04)
[2018-06-26] MEDS: DIPHENOXYLATE 2.5/ATROPINE.025 1 COMBO TABLET PO PRN (06:19)
[2018-06-26] MEDS: METHADONE 40 MG, METHADONE 5 MG PO SCH (06:20)
[2018-06-26] MEDS: CALCIUM 250MG/VIT-D 125 UNITS 1 COMBO TABLET PO SCH ×2 (10:16→21:30)
[2018-06-26] MEDS: PRENATAL VITAMINS W/ FOLIC ACID TABLET (FP) PO SCH (10:16)
[2018-06-26] MEDS: THIAMINE HCL 100 MG TABLET (FP) PO SCH (21:30)
[2018-06-26] MEDS: AMITRIPTYLINE HCL 25 MG TABLET (FP) PO SCH (21:30)
[2018-06-26] MEDS: ACETAMINOPHEN 325 MG TABLET (FP) PO PRN (21:31)
[2018-06-27] MEDS ORDERED: METHADONE HCL 40 MG DISPERSABLE TABLET ONE (03:37)
[2018-06-27] MEDS ORDERED: METHADONE HCL 5 MG TABLET ONE (03:37)
[2018-06-27] MEDS: METHADONE 40 MG, METHADONE 5 MG PO SCH (06:24)
[2018-06-27] MEDS: CALCIUM 250MG/VIT-D 125 UNITS 1 COMBO TABLET PO SCH ×2 (09:45→21:46)
[2018-06-27] MEDS: PRENATAL VITAMINS W/ FOLIC ACID TABLET (FP) PO SCH (09:46)
[2018-06-27] MEDS: DIPHENOXYLATE 2.5/ATROPINE.025 1 COMBO TABLET PO PRN ×2 (10:41→15:48)
[2018-06-27] MEDS: IBUPROFEN 400 MG TABLET (FP) PO PRN (17:23)
[2018-06-27] MEDS: AMITRIPTYLINE HCL 25 MG TABLET (FP) PO SCH (21:46)
[2018-06-27] MEDS: THIAMINE HCL 100 MG TABLET (FP) PO SCH (21:46)
[2018-06-27] MEDS: MELATONIN 5 MG TABLETS PO PRN (21:47)
[2018-06-28] MEDS ORDERED: METHADONE HCL 5 MG TABLET ONE (04:04)
[2018-06-28] MEDS ORDERED: METHADONE HCL 40 MG DISPERSABLE TABLET ONE (04:04)
[2018-06-28] MEDS: METHADONE 40 MG, METHADONE 5 MG PO SCH (06:17)
[2018-06-28] MEDS: CALCIUM 250MG/VIT-D 125 UNITS 1 COMBO TABLET PO SCH ×2 (10:41→21:42)
[2018-06-28] MEDS: PRENATAL VITAMINS W/ FOLIC ACID TABLET (FP) PO SCH (10:41)
[2018-06-28] MEDS: DIPHENOXYLATE 2.5/ATROPINE.025 1 COMBO TABLET PO PRN (14:39)
[2018-06-28] MEDS: AMITRIPTYLINE HCL 25 MG TABLET (FP) PO SCH (21:42)
[2018-06-28] MEDS: THIAMINE HCL 100 MG TABLET (FP) PO SCH (21:42)
[2018-06-28] MEDS: IBUPROFEN 400 MG TABLET (FP) PO PRN (21:42)
[2018-06-29] MEDS ORDERED: METHADONE HCL 5 MG TABLET ONE (02:54)
[2018-06-29] MEDS ORDERED: METHADONE HCL 40 MG DISPERSABLE TABLET ONE (02:54)
[2018-06-29] MEDS: METHADONE 40 MG, METHADONE 5 MG PO SCH (06:20)
[2018-06-29] MEDS: CALCIUM 250MG/VIT-D 125 UNITS 1 COMBO TABLET PO SCH ×2 (10:11→21:50)
[2018-06-29] MEDS: PRENATAL VITAMINS W/ FOLIC ACID TABLET (FP) PO SCH (10:11)
[2018-06-29] MEDS: IBUPROFEN 400 MG TABLET (FP) PO PRN ×2 (14:35→20:51)
[2018-06-29] MEDS: MAG HYDROX/AL HYDROX/SIMETH 30 ML UNIT-DOSE CUP PO PRN (20:51)
[2018-06-29] MEDS: THIAMINE HCL 100 MG TABLET (FP) PO SCH (21:50)
[2018-06-29] MEDS: AMITRIPTYLINE HCL 25 MG TABLET (FP) PO SCH (21:50)
[2018-06-29] MEDS: ACETAMINOPHEN 325 MG TABLET (FP) PO PRN (23:43)
[2018-06-30] MEDS ORDERED: METHADONE HCL 5 MG TABLET ONE (05:23)
[2018-06-30] MEDS ORDERED: METHADONE HCL 40 MG DISPERSABLE TABLET ONE (05:24)
[2018-06-30] MEDS: METHADONE 40 MG, METHADONE 5 MG PO SCH (06:07)
[2018-06-30] MEDS: ACETAMINOPHEN 325 MG TABLET (FP) PO PRN ×2 (06:09→15:23)
[2018-06-30] MEDS: PRENATAL VITAMINS W/ FOLIC ACID TABLET (FP) PO SCH (10:09)
[2018-06-30] MEDS: CALCIUM 250MG/VIT-D 125 UNITS 1 COMBO TABLET PO SCH ×2 (10:09→22:00)
[2018-06-30] MEDS: AMITRIPTYLINE HCL 25 MG TABLET (FP) PO SCH (21:59)
[2018-06-30] MEDS: THIAMINE HCL 100 MG TABLET (FP) PO SCH (21:59)
[2018-06-30] MEDS: MAG HYDROX/AL HYDROX/SIMETH 30 ML UNIT-DOSE CUP PO PRN (22:01)
[2018-06-30] MEDS: MELATONIN 5 MG TABLETS PO PRN (22:01)
[2018-07-01] MEDS: ACETAMINOPHEN 325 MG TABLET (FP) PO PRN (05:10)
[2018-07-01] MEDS: MAG HYDROX/AL HYDROX/SIMETH 30 ML UNIT-DOSE CUP PO PRN (05:10)
[2018-07-01] MEDS ORDERED: METHADONE HCL 5 MG TABLET ONE (05:30)
[2018-07-01] MEDS ORDERED: METHADONE HCL 40 MG DISPERSABLE TABLET ONE (05:31)
[2018-07-01] MEDS: METHADONE 40 MG, METHADONE 5 MG PO SCH (06:17)
[2018-07-01 07:00] VITALS: BP 138/97; PULSE 83; TEMP 98.4
--- NOTE | 2018-07-01 10:13 | PN ---
Psychiatric Progress Note Vital Signs: Vital Signs Period Temp Pulse Resp BP Sys/Price Pulse Ox Last 24 Hr 98.4 F 83 16-18 138/97 Date of Session: 07/01/18 Chief Complaint:: Discharge Note HPI: Patient addressing Alcohol Dependence comorbid with Opioid Dependence on Agonist Therapy, Nicotine Dependence, Mood Disorder, Alcohol-Induced Mood Disorder and Alcohol-Induced Sleep disorder ROS: Hep C was medically managed Current Medications: Active Medications Generic Name Dose Route Start Last Admin Trade Name Freq PRN Reason Stop Dose Admin Acetaminophen 650 mg 06/19/18 13:13 07/01/18 05:10 Tylenol - PO 650 mg Q4H PRN Administration FEVER Al Hydroxide/Mg Hydroxide 30 ml 06/19/18 13:13 07/01/18 05:10 Mylanta Oral Suspension - PO 30 ml Q6H PRN Administration DYSPEPSIA Amitriptyline HCl 25 mg 06/19/18 22:00 06/30/18 21:59 Elavil - PO 25 mg HS SLOANE Administration Calcium/Vitamin D 1 tab 06/19/18 22:00 06/30/18 22:00 Oscal 250 Mg+D - PO 1 tab BID SLOANE Administration Eucalyptus/Menthol/Phenol/Sorbitol 1 each 06/19/18 13:13 Cepastat Lozenge - MM Q4H PRN SORE THROAT Guaifenesin 10 ml 06/19/18 13:13 Robitussin Dm - PO Q6H PRN COUGH Ibuprofen 400 mg 06/19/18 13:13 06/29/18 20:51 Motrin - PO 400 mg Q6H PRN Administration Pain Level 4-6 Magnesium Citrate 300 ml 06/19/18 13:13 Citroma - PO Q48H PRN CONSTIPATION Magnesium Hydroxide 30 ml 06/19/18 13:13 Milk Of Magnesia - PO DAILY PRN CONSTIPATION Melatonin 5 mg 06/19/18 22:00 06/30/18 22:01 Melatonin PO 5 mg HS PRN Administration INSOMNIA Methadone HCl 40 mg/ Methadone 45 mg 07/02/18 06:00 HCl 5 mg PO 07/08/18 05:59 DAILY@0600 SLOANE Nicotine 14 mg 06/19/18 14:15 Nicoderm Patch - TD DAILY PRN WITHDRAWAL(CONT SUBST) Nicotine Polacrilex 2 mg 06/19/18 13:13 Nicorette Gum - BUC Q2H PRN NICOTINE REPLACEMENT RX Multivit/Folic Acid/Iron 1 tab 06/20/18 10:00 06/30/18 10:09 Vitamins (Sjr) - PO 1 tab DAILY SLOANE Administration Pseudoephedrine/Triprolidine 1 combo 06/19/18 13:13 Actifed - PO TID PRN NASAL CONGESTION Thiamine HCl 100 mg 06/19/18 22:00 06/30/18 21:59 Vitamin B1 - PO 100 mg HS SLOANE Administration Current Side Effect: No Lab tests ordered: Yes Lab tests reviewed: Yes Provider note:: Patient has completed this program today. He has met partially his treatment goals and will continue to address his issues in [facility] residential treatment at [facility] at [address] [place] [address]. Told marketing underwriter that from his participation in this program, he has learned the importance of making meetings and get a sponsor. He responded well to Amitryptiline 25 mg po HS. Script for 30 days supply for that medication is electronically transmitted to [facility] at [address] [place] [address] Total face to face time:: 35 Mental Status Exam - Mental Status Exam Alert and Oriented to: Time, Place, Person Cognitive Function: Fair Patient Appearance: Well Groomed Mood: Hopeful, Euthymic Affect: Appropriate Patient Behavior: Cooperative Speech Pattern: Clear Voice Loudness: Normal Thought Process: Intact, Goal Oriented Thought Disorder: Not Present Hallucinations: Denies Suicidal Ideation: Denies Homicidal Ideation: Denies Insight/Judgement: Fair Sleep: Fair Appetite: Good Muscle strength/Tone: Normal Gait/Station: Normal Psychiatric Treatment Plan - Problem List (1) Alcohol dependence Current Visit: Yes (2) Opioid dependence on agonist therapy Current Visit: No (3) Nicotine dependence Current Visit: No Qualifiers: Nicotine product type: cigarettes Substance use status: in withdrawal Qualified Code(s): F17.213 - Nicotine dependence, cigarettes, with withdrawal (4) Mood disorder Current Visit: Yes (5) Bipolar disorder Current Visit: Yes (6) Alcohol-induced mood disorder Current Visit: Yes (7) Alcohol-induced sleep disorder Current Visit: Yes (8) Hepatitis C Current Visit: No Qualifiers: Viral hepatitis chronicity: chronic Hepatic coma status: without hepatic coma Qualified Code(s): B18.2 - Chronic viral hepatitis C Initial treatment plan: Patient is discharged today and referred to [facility] for [facility] residential treatment
[2018-07-01] MEDS: CALCIUM 250MG/VIT-D 125 UNITS 1 COMBO TABLET PO SCH (10:46)
[2018-07-01] MEDS: PRENATAL VITAMINS W/ FOLIC ACID TABLET (FP) PO SCH (10:47)
[2018-07-02] MEDS ORDERED: METHADONE 40 MG, METHADONE 5 MG PO SCH (06:00)
== END 2018-07-01 11:30 | disposition home or self-care (01) | DRG 772 ==
LOC: YASAS 13:09 → Y5N 13:10
PROVIDERS: ADMIT Psychiatry & Neurology Psychiatry; ATTEND Psychiatry & Neurology Psychiatry
PROC: HZ42ZZZ Group Counseling for Substance Abuse Treatment, Cognitive-Behavioral (ICD-10-PCS; principal; 2018-06-20)
DX: F10.24 Alcohol dependence with alcohol-induced mood disorder (principal); F10.282 Alcohol dependence with alcohol-induced sleep disorder; F11.20 Opioid dependence, uncomplicated; F17.213 Nicotine dependence, cigarettes, with withdrawal; F39 Unspecified mood [affective] disorder; F31.9 Bipolar disorder, unspecified; B18.2 Chronic viral hepatitis C; R19.7 Diarrhea, unspecified

== ENCOUNTER 2018-11-25 19:57 | Inpatient (IN) | payer OTHER ==
[2018-11-25 23:56] VITALS: BMI 25.7
--- NOTE | 2018-11-26 01:08 | HP ---
CIWA Score Nausea/Vomitin Muscle Tremors: 3 Anxiety: 2 Agitation: 2 Paroxysmal Sweats: 3 Orientation: 0-Oriented Tacttile Disturbances: 2-Mild Itch/Numbness/Burn Auditory Disturbances: 2-Mild Harshness/Frighten Visual Disturbances: 1-Very Mild Sensitivity Headache: 1-Very Mild CIWA-Ar Total Score: 18 - Admission Criteria OASAS Guidelines: Admission for Medically Managed Detox: Requires at least one of the followin. CIWA greater than 12 2. Seizures within the past 24 hours 3. Delirium tremens within the past 24 hours 4. Hallucinations within the past 24 hours 5. Acute intervention needed for co occurring medical disorder 6. Acute intervention needed for co occurring psychiatric disorder 7. Severe withdrawal that cannot be handled at a lower level of care (continued vomiting, continued diarrhea, abnormal vital signs) requiring intravenous medication and/or fluids 8. Admission ROS [facility] - HPI Chief Complaint: DEPENDENT ON ETOH ON MMTP 55 MGS./D - LAST DOSE ON 11/25/2018 Allergies/Adverse Reactions: Allergies Allergy/AdvReac Type Severity Reaction Status Date / Time Penicillins Allergy Severe Rash Verified 11/25/18 23:44 History of Present Illness: THE PT. IS REQUESTING ADMISSION TO THE DETOX UNIT AND CAME FOR MEDICAL CLEARANCE AND H AND PE - Ebola screening Have you traveled outside of the country in the last 21 days: No (N) Have you had contact with anyone from an Ebola affected area: No Have you been sick,other than usual withdrawal symptoms: No Do you have a fever: No - Review of Systems Constitutional: See HPI, Malaise, Weakness EENT: reports: See HPI Respiratory: reports: See HPI Cardiac: reports: See HPI, Edema GI: reports: See HPI, Nausea, Abdominal cramping : reports: See HPI Musculoskeletal: reports: See HPI, Joint Swelling, Muscle Pain, Muscle Weakness Integumentary: reports: See HPI Neuro: reports: See HPI, Headache, Pre-Existing Deficit, Tremors, Weakness, Unsteady Gait Endocrine: reports: See HPI Psychiatric: reports: Judgement Intact, Orientated x3, Anxious, Depressed Patient History - Patient Medical History Hx Anemia: No Hx Asthma: No Hx Chronic Obstructive Pulmonary Disease (COPD): No Hx Cancer: No Hx Cardiac Disorders: No Hx Congestive Heart Failure: No Hx Hypertension: No Hx Hypercholesterolemia: No Hx Pacemaker: No HX Cerebrovascular Accident: No Hx Seizures: No Hx Dementia: No Hx Diabetes: No Hx Gastrointestinal Disorders: No Hx Liver Disease: Yes (HEPATITIS C) Hx Genitourinary Disorders: No Hx Sexually Transmitted Disorders: No Hx Renal Disease (ESRD): No Hx Thyroid Disease: No Hx Human Immunodeficiency Virus (HIV): No Hx Hepatitis C: Yes Hx Suicide Attempt: No Hx Bipolar Disorder: Yes (AND ANXIETY DISORDER) Hx Schizophrenia: No - Patient Surgical History Past Surgical History: Yes Hx Neurologic Surgery: No Hx Cataract Extraction: No Hx Cardiac Surgery: No Hx Lung Surgery: No Hx Breast Surgery: No Hx Breast Biopsy: No Hx Abdominal Surgery: No Hx Appendectomy: No Hx Cholecystectomy: No Hx Genitourinary Surgery: No Hx Section: No Hx Orthopedic Surgery: Yes (RLE AND JAW SX) Anesthesia Reaction: No - PPD History Date: 06/16/18 Results: 0 mm. - Smoking Cessation Smoking history: Current every day smoker Have you smoked in the past 12 months: Yes Aproximately how many cigarettes per day: 12 Cigars Per Day: 0 Hx Chewing Tobacco Use: No Initiated information on smoking cessation: Yes 'Breaking Loose' booklet given: 11/26/18 - Substance & Tx. History Hx Alcohol Use: Yes Hx Substance Use: Yes Substance Use Type: Alcohol, Prescribed Hx Substance Use Treatment: Yes - Substances abused Alcohol Substance route: Oral Frequency: Daily Amount used: LIQUOR 2 pints/D Age of first use: 15 Date of last use: 11/25/18 Family Disease History - Family Disease History Family Disease History: Diabetes: Mother (), Other: Mother Admission Physical Exam [facility] - Vital Signs Vital Signs: Vital Signs - 24 hr 11/25/18 23:50 Temperature 96.8 F L Pulse Rate 61 Respiratory 17 Rate Blood Pressure 148/83 - Physical General Appearance: Yes: No Apparent Distress, Nourished, Appropriately Dressed , Alcohol on Breath, Tremorous, Sweating, Anxious HEENTM: Yes: Hearing grossly Normal, Normocephalic, Normal Voice, HUMA, Pharynx Normal Respiratory: Yes: Chest Non-Tender, Lungs Clear, Normal Breath Sounds, No Respiratory Distress, No Accessory Muscle Use Neck: Yes: No masses,lesions,Nodules, Supple, Trachea in good position Breast: Yes: Breast Exam Deferred, Axillae without masses Cardiology: Yes: Regular Rhythm, Regular Rate, S1, S2 Abdominal: Yes: Normal Bowel Sounds, Non Tender, Soft, Protuberent, Distended Back: Yes: Normal Inspection, Decreased Range of Motion Musculoskeletal: Yes: Muscle Pain, Muscle weakness Extremities: Yes: Non-Tender, Tremors, Swelling Neurological: Yes: Fully Oriented, Alert, Normal Response, Depressed Affect Integumentary: Yes: Warm, Moist Lymphatic: Yes: Within Normal Limits - Diagnostic (1) Alcohol dependence with uncomplicated withdrawal Current Visit: No Status: Chronic (2) Anxiety and depression Current Visit: No Status: Chronic (3) Methadone maintenance therapy patient Current Visit: No Status: Chronic (4) Nicotine dependence Current Visit: No Status: Chronic Qualifiers: Nicotine product type: cigarettes Substance use status: in withdrawal Qualified Code(s): F17.213 - Nicotine dependence, cigarettes, with withdrawal Cleared for Admission [facility] - Detox or Rehab [facility] Level of Care: Medically Supervised Detox Regimen/Protocol: Librium Breathalyzer - Breathalyzer Breathalyzer: 0.083 Urine Drug Screen - Test Device Lot number: [id number] Expiration date: 07/19/18 - Control Is test valid?: Yes - Results Drug screen NEGATIVE: No Urine drug screen results: THC-Marijuana, LANETTE-Cocaine, FEN-Fentanyl, MOP-Opiates , MTD-Methadone, BZO-Benzodiazepines Inpatient Rehab Admission - Rehab Decision to Admit Inpatient rehab admission?: No
[2018-11-26] MEDS ORDERED: MAG HYDROX/AL HYDROX/SIMETH 30 ML UNIT-DOSE CUP PO PRN (01:16)
[2018-11-26] MEDS ORDERED: MAGNESIUM CITRATE 300 ML BOTTLE PO PRN (01:16)
[2018-11-26] MEDS ORDERED: NICOTINE POLACRILEX 4 MG GUM BUC PRN (01:16)
[2018-11-26] MEDS ORDERED: METHOCARBAMOL 500 MG TABLET PO PRN (01:16)
[2018-11-26] MEDS ORDERED: BISMUTH SUBSALICYLATE 524 MG/30 ML UD PO PRN (01:16)
[2018-11-26] MEDS ORDERED: MENTHOL/PHENOL 1 EACH UD MM PRN (01:16)
[2018-11-26] MEDS ORDERED: ACETAMINOPHEN 325 MG TABLET (FP) PO PRN ×2 (01:16)
[2018-11-26] MEDS ORDERED: IBUPROFEN 400 MG TABLET (FP) PO PRN (01:16)
[2018-11-26] MEDS ORDERED: hydrOXYzine PAMOATE 25 MG CAPSULE (FP) PO PRN (01:16)
[2018-11-26] MEDS ORDERED: MAGNESIUM HYDROX 2400MG/30ML ORAL SUSPENSION 30 ML CUP PO PRN (01:16)
[2018-11-26] MEDS: chlordiazePOXIDE HCL 10 MG CAPSULE PO PRN ×2 (02:03→16:54)
[2018-11-26] MEDS: clonazePAM 0.5 MG TABLET PO SCH (05:09)
[2018-11-26] MEDS: chlordiazePOXIDE HCL 25 MG CAPSULE PO SCH ×3 (05:09→22:20)
[2018-11-26] MEDS ORDERED: METHADONE HCL 10 MG TABLET PO SCH (09:15)
[2018-11-26] MEDS ORDERED: PATIENT'S OWN MEDICATION (NON-FORMULARY) (Emtricitabine/Tenofovir (Tdf) [Truvada 100 Mg-15 PO SCH (10:00)
[2018-11-26] MEDS ORDERED: HYDROCHLOROTHIAZIDE 25 MG TABLET (FP) PO SCH (10:00)
[2018-11-26] MEDS: PRENATAL VITAMINS W/ FOLIC ACID TABLET (FP) PO SCH (10:18)
[2018-11-26] MEDS: NICOTINE 21 MG/24 HOURS TOPICAL PATCH TD SCH (10:18)
[2018-11-26] MEDS: HYDROCHLOROTHIAZIDE 25 MG TABLET (FP) PO SCH (10:18)
[2018-11-26] MEDS ORDERED: METHADONE HCL 10 MG TABLET ONE (10:19)
[2018-11-26] MEDS ORDERED: METHADONE HCL 5 MG TABLET ONE (10:20)
[2018-11-26] MEDS: METHADONE 40 MG, METHADONE 10 MG, METHADONE 5 MG PO SCH (10:20)
[2018-11-26] MEDS ORDERED: METHADONE HCL 40 MG DISPERSABLE TABLET ONE (10:20)
--- NOTE | 2018-11-26 15:40 | PN ---
[facility] CIWA - CIWA Score Nausea/Vomitin-No Nausea/No Vomiting Muscle Tremors: 4-Moderate,w/Arms Extend Anxiety: 3 Agitation: 1-Slight > Activity Paroxysmal Sweats: 2 Orientation: 0-Oriented Tacttile Disturbances: 2-Mild Itch/Numbness/Burn Auditory Disturbances: 0-None Visual Disturbances: 2-Mild Sensitivity Headache: 0-None Present CIWA-Ar Total Score: 14 S Progress Note (SOAP) Subjective: Fatigue, Anxious, Sweating, Chills, Poor Appetite. Objective: PATIENT A & O X 2 (UNCERTAIN ABOUT CURRENT DAY / DATE). PATIENT OBSERVED AMBULATING ON UNIT UNASSISTED. IN NO ACUTE DISTRESS. PATIENT DENIES KNOWN HISTORY OF HTN. 11/26/18 15:39 Vital Signs Temperature 98.9 F 11/26/18 13:32 Pulse Rate 66 11/26/18 13:32 Respiratory Rate 18 11/26/18 13:32 Blood Pressure 174/97 H 11/26/18 13:32 O2 Sat by Pulse Oximetry (%) DETOX ADMISSION LAB RESULT PENDING. 11/26/18 15:39 Assessment: 11/26/18 15:41 WITHDRAWAL SYMPTOMS. ELEVATED BLOOD PRESSURE WITHOUT DIAGNOSIS OF HYPERTENSION. 11/26/18 15:48 Plan: CONTINUE DETOX. CLONIDINE, 0.1 MG PO BID FOR ELEVATED BLOOD PRESSURE. ENSURE, PO BID FOR CALORIC SUPPLEMENTATION. PATIENT REPORTED ON ADMISSION THAT HE TAKES TRUVADA FOR H.I.V. PROPHYLAXIS. HOWEVER, PATIENT DID NOT BRING MEDICATION WITH HIM AT TIME OF ADMISSION TO DETOX. PATIENT UNCERTAIN ABOUT SPECIFIC DOSAGE OF MEDICATION. PATIENT ALSO NOTES THAT HE HAS NOT TAKEN THE MEDICATION FOR APPROX. THE LAST TWO WEEKS BECAUSE HE RAN OUT OF IT. PATIENT REPORTS THAT HE HAS HAD UNPROTECTED SEX ONLY WITH HIS PARTNER DURING THAT TIME. PATIENT HAS NOT TAKEN TRUVADA FOR APPROX. TWO WEEKS NOW, MEDICATION TO BE HELD WHILE PATIENT ADMITTED FOR DETOX. PATIENT ADVISED TO FOLLOW-UP WITH MEDICAL PROVIDER WHO NORMALLY PRESCRIBES THE TRUVADA ([place], [place], [place]) AFTER DISCHARGE FROM DETOX FOR GENERAL MEDICAL ASSESSMENT AND FOR HISTORY OF PRESCRIBED TRUVADA FOR H.I.V. PROPHYLAXIS. PATIENT VERBALIZED UNDERSTANDING OF RECOMMENDATION.
[2018-11-26] MEDS: THIAMINE HCL 100 MG TABLET (FP) PO SCH (22:20)
[2018-11-26] MEDS: AMITRIPTYLINE HCL 25 MG TABLET (FP) PO SCH (22:20)
[2018-11-26] MEDS: cloNIDine HCL 0.1 MG TABLET PO SCH (22:20)
[2018-11-27] MEDS ORDERED: METHADONE HCL 40 MG DISPERSABLE TABLET ONE (04:18)
[2018-11-27] MEDS ORDERED: METHADONE HCL 10 MG TABLET ONE (04:18)
[2018-11-27] MEDS ORDERED: METHADONE HCL 5 MG TABLET ONE (04:19)
[2018-11-27] MEDS: METHADONE 40 MG, METHADONE 10 MG, METHADONE 5 MG PO SCH (05:11)
[2018-11-27] MEDS: HYDROCHLOROTHIAZIDE 25 MG TABLET (FP) PO SCH (05:11)
[2018-11-27] MEDS: chlordiazePOXIDE 5 MG CAPSULE PO SCH ×2 (05:11→13:15)
[2018-11-27] MEDS: PRENATAL VITAMINS W/ FOLIC ACID TABLET (FP) PO SCH (10:09)
[2018-11-27] MEDS: cloNIDine HCL 0.1 MG TABLET PO SCH ×2 (10:09→22:27)
[2018-11-27] MEDS: NICOTINE 21 MG/24 HOURS TOPICAL PATCH TD SCH (10:10)
[2018-11-27 12:26] LABS: ALBUMIN 2.6 g/dl (3.4-5.0); BILIRUBIN,TOTAL 7.4 mg/dL (0.2-1); BLOOD UREA NITROGEN 6.2 mg/dL (7-18); CALCIUM 8.6 mg/dL (8.5-10.1); CREATININE 0.7 mg/dL (0.55-1.3); POTASSIUM 3.6 mmol/L (3.5-5.1); TOT PROT 6.8 g/dl (6.4-8.2)
[2018-11-27 12:29] LABS: HEMATOCRIT 43.9 % (35.4-49); HEMOGLOBIN 14.7 GM/dL (11.7-16.9); MCH 32.9 pg (25.7-33.7); MCHC 33.4 g/dl (32.0-35.9); MEAN CELL VOLUME 98.7 fl (80-96); MEAN PLT VOLUME 11.8 fl (7.5-11.1); RBC 4.45 M/mm3 (4.00-5.60); RDW 14.9 % (11.9-15.9); WHITE BLOOD COUNT 10.2 K/mm3 (4.0-10.0)
[2018-11-27 12:34] LABS: PLATELET COUNT 122 K/MM3 (134-434)
[2018-11-27] MEDS: clonazePAM 0.5 MG TABLET PO SCH (13:42)
[2018-11-27] MEDS ORDERED: LORazepam 1 MG TABLET PO PRN (15:41)
--- NOTE | 2018-11-27 15:43 | PN ---
[facility] CIWA - CIWA Score Nausea/Vomitin-No Nausea/No Vomiting Muscle Tremors: None Anxiety: 3 Agitation: 1-Slight > Activity Paroxysmal Sweats: 3 Orientation: 0-Oriented Tacttile Disturbances: 2-Mild Itch/Numbness/Burn Auditory Disturbances: 0-None Visual Disturbances: 1-Very Mild Sensitivity Headache: 0-None Present CIWA-Ar Total Score: 10 S Progress Note (SOAP) Subjective: Fatigue, Chills, Sweating, Poor Appetite. Objective: PATIENT A & O X 2 (UNCERTAIN ABOUT CURRENT DAY / DATE). IN NO ACUTE DISTRESS. 11/27/18 15:44 Vital Signs Temperature 97.0 F L 11/27/18 13:55 Pulse Rate 68 11/27/18 13:55 Respiratory Rate 18 11/27/18 13:55 Blood Pressure 140/90 11/27/18 13:55 O2 Sat by Pulse Oximetry (%) Laboratory Tests 11/27/18 11/27/18 11/27/18 07:30 07:30 07:30 WBC 10.2 H RBC 4.45 Hgb 14.7 Hct 43.9 MCV 98.7 H MCH 32.9 MCHC 33.4 RDW 14.9 D Plt Count 122 L D MPV 11.8 H Sodium 138 Potassium 3.6 Chloride 96 L Carbon Dioxide 32 Anion Gap 10 BUN 6.2 L Creatinine 0.7 Est GFR (CKD-EPI)AfAm 124.87 Est GFR (CKD-EPI)NonAf 107.74 Random Glucose 71 L Calcium 8.6 Total Bilirubin 7.4 H AST 271 H ALT 85 H Alkaline Phosphatase 313 H Total Protein 6.8 Albumin 2.6 L RPR Titer Nonreactive LABS NOTED. Assessment: 11/27/18 15:44 WITHDRAWAL SYMPTOMS. ELEVATED LIVER ENZYMES. HYPERBILIRUBINEMIA. Plan: CONTINUE DETOX. CHANGE TO ATIVAN DETOX PROTOCOL FOR ELEVATED LIVER ENZYMES NOTED ON DETOX ADMISSION LABORATORY ASSESSMENT.
[2018-11-27] MEDS: LORazepam 0.5 MG TABLET PO SCH ×2 (17:11→22:27)
[2018-11-27] MEDS: THIAMINE HCL 100 MG TABLET (FP) PO SCH (22:27)
[2018-11-27] MEDS: AMITRIPTYLINE HCL 25 MG TABLET (FP) PO SCH (22:27)
[2018-11-27] MEDS: MELATONIN 5 MG TABLETS PO PRN (22:27)
[2018-11-28] MEDS ORDERED: METHADONE HCL 10 MG TABLET ONE (05:00)
[2018-11-28] MEDS ORDERED: chlordiazePOXIDE HCL 10 MG CAPSULE PO PRN (05:00)
[2018-11-28] MEDS ORDERED: METHADONE HCL 40 MG DISPERSABLE TABLET ONE (05:00)
[2018-11-28] MEDS ORDERED: chlordiazePOXIDE HCL 10 MG CAPSULE PO SCH (05:00)
[2018-11-28] MEDS ORDERED: METHADONE HCL 5 MG TABLET ONE (05:01)
[2018-11-28] MEDS: METHADONE 40 MG, METHADONE 10 MG, METHADONE 5 MG PO SCH (05:53)
[2018-11-28] MEDS: LORazepam 0.5 MG TABLET PO SCH ×4 (05:53→22:16)
[2018-11-28] MEDS: HYDROCHLOROTHIAZIDE 25 MG TABLET (FP) PO SCH (05:54)
[2018-11-28] MEDS: PRENATAL VITAMINS W/ FOLIC ACID TABLET (FP) PO SCH (10:06)
[2018-11-28] MEDS: cloNIDine HCL 0.1 MG TABLET PO SCH ×2 (10:06→22:16)
[2018-11-28] MEDS: NICOTINE 21 MG/24 HOURS TOPICAL PATCH TD SCH (10:07)
--- NOTE | 2018-11-28 15:41 | PN ---
[facility] CIWA - CIWA Score Nausea/Vomitin-No Nausea/No Vomiting Muscle Tremors: None Anxiety: 2 Agitation: 1-Slight > Activity Paroxysmal Sweats: 2 Orientation: 0-Oriented Tacttile Disturbances: 1-Very Mild Itch/Numbness Auditory Disturbances: 0-None Visual Disturbances: 0-None Headache: 0-None Present CIWA-Ar Total Score: 6 BHS Progress Note (SOAP) Subjective: Poor Appetite, Fatigue, Sweating. Objective: PATIENT A & O X 3, OBSERVED AMBULATING ON UNIT UNASSISTED. IN NO ACUTE DISTRESS. 11/28/18 15:37 Vital Signs Temperature 97.2 F L 11/28/18 13:20 Pulse Rate 72 11/28/18 13:20 Respiratory Rate 18 11/28/18 13:20 Blood Pressure 131/89 11/28/18 13:20 O2 Sat by Pulse Oximetry (%) Laboratory Tests 11/27/18 11/27/18 11/27/18 07:30 07:30 07:30 WBC 10.2 H RBC 4.45 Hgb 14.7 Hct 43.9 MCV 98.7 H MCH 32.9 MCHC 33.4 RDW 14.9 D Plt Count 122 L D MPV 11.8 H Sodium 138 Potassium 3.6 Chloride 96 L Carbon Dioxide 32 Anion Gap 10 BUN 6.2 L Creatinine 0.7 Est GFR (CKD-EPI)AfAm 124.87 Est GFR (CKD-EPI)NonAf 107.74 Random Glucose 71 L Calcium 8.6 Total Bilirubin 7.4 H AST 271 H ALT 85 H Alkaline Phosphatase 313 H Total Protein 6.8 Albumin 2.6 L RPR Titer Nonreactive LABS NOTED. PATIENT HAS HAD ELEVATED LIVER ENZYME AND BILIRUBIN LEVELS AND LOW PLATELET LEVELS ON PREVIOUS ADMISSIONS. 11/28/18 15:39 Assessment: 11/28/18 15:39 WITHDRAWAL SYMPTOMS. ELEVATED LIVER ENZYMES. HYPERBILIARUBINEMIA. THROMBOCYTIOPENIA. Plan: CONTINUE DETOX. PATIENT SCHEDULED FOR D/C TOMORROW AM.
[2018-11-28] MEDS ORDERED: LORazepam 0.5 MG TABLET PO PRN (15:45)
[2018-11-28] MEDS: AMITRIPTYLINE HCL 25 MG TABLET (FP) PO SCH (22:16)
[2018-11-28] MEDS: MELATONIN 5 MG TABLETS PO PRN (22:16)
[2018-11-28] MEDS: THIAMINE HCL 100 MG TABLET (FP) PO SCH (22:16)
[2018-11-29] MEDS ORDERED: METHADONE HCL 10 MG TABLET ONE (05:10)
[2018-11-29] MEDS ORDERED: METHADONE HCL 40 MG DISPERSABLE TABLET ONE (05:10)
[2018-11-29] MEDS ORDERED: METHADONE HCL 5 MG TABLET ONE (05:11)
[2018-11-29] MEDS: METHADONE 40 MG, METHADONE 10 MG, METHADONE 5 MG PO SCH (05:36)
[2018-11-29] MEDS: HYDROCHLOROTHIAZIDE 25 MG TABLET (FP) PO SCH (05:37)
[2018-11-29 09:35] VITALS: BP 150/78; PULSE 58; TEMP 98.1
[2018-11-29] MEDS: PRENATAL VITAMINS W/ FOLIC ACID TABLET (FP) PO SCH (10:24)
[2018-11-29] MEDS: NICOTINE 21 MG/24 HOURS TOPICAL PATCH TD SCH (10:24)
[2018-11-29] MEDS: cloNIDine HCL 0.1 MG TABLET PO SCH (10:24)
--- NOTE | 2018-11-29 17:49 | DS ---
[facility] Detox Discharge Summary Admission Date: 11/26/18 Discharge Date: 11/29/18 - History Present History: Alcohol Dependence Additional Comments: PATIENT GONIG HOME TO ATTEND TO PERSONAL MATTERS FOR THE NEXT FEW DAYS, THEN WILL RETURN IN A FEW DAYS TO APPLY FOR ADMISSION AT [facility] ( [place], [place]) IN THE NEXT FEW DAYS. PATIENT ADVISED TO FOLLOW-UP WITH [facility] WHEN POSSIBLE FOR GENERAL MEDICAL ASSESSMENT AND FOR ELEVATED LIVER ENZYMES AND BILIRUBIN LEVEL AND FOR LOW PLATELET LEVELS NOTED ON DETOX ADMISSION LABORATORY ASSESSMENT AND FOR ELEVATED BLOOD PRESSURE READINGS NOTED WHILE ADMITTED FOR DETOX. PATIENT VERBALIZED UNDERSTANDING OF ALL RECOMMENDATIONS. COPIES OF RESULTS OF ALL LABS DRAWN WHILE ADMITTED FOR DETOX GIVEN TO PATIENT AT TIME OF DISCHARGE FROM DETOX UNIT. PATIENT WAS DISCHARGED FROM DETOX UNIT IN STABLE MEDICAL CONDITION. Pertinent Past History: Hep C, Bipolar Disorder, Anxiety, Depression, Nicotine Dependence, M.M.T.P., Elevated Liver Enzymes, Hyperbilirubinemia, Thrombocytopenia. - Physical Exam Results Vital Signs: Vital Signs Temperature 98.1 F 11/29/18 09:34 Pulse Rate 58 L 11/29/18 09:34 Respiratory Rate 18 11/29/18 09:34 Blood Pressure 150/78 11/29/18 09:34 O2 Sat by Pulse Oximetry (%) Pertinent Admission Physical Exam Findings: WITHDRAWAL SYMPTOMS. Laboratory Tests 11/27/18 11/27/18 11/27/18 07:30 07:30 07:30 WBC 10.2 H RBC 4.45 Hgb 14.7 Hct 43.9 MCV 98.7 H MCH 32.9 MCHC 33.4 RDW 14.9 D Plt Count 122 L D MPV 11.8 H Sodium 138 Potassium 3.6 Chloride 96 L Carbon Dioxide 32 Anion Gap 10 BUN 6.2 L Creatinine 0.7 Est GFR (CKD-EPI)AfAm 124.87 Est GFR (CKD-EPI)NonAf 107.74 Random Glucose 71 L Calcium 8.6 Total Bilirubin 7.4 H AST 271 H ALT 85 H Alkaline Phosphatase 313 H Total Protein 6.8 Albumin 2.6 L RPR Titer Nonreactive LABS NOTED. - Treatment Hospital Course: Detox Protocol Followed, Detoxed Safely, Responded well, Discharged Condition Good, Rehab Referral Accepted Patient has Accepted a Rehab Referral to: [facility] ([place], [place]); PT WILL APPLY IN A FEW DAYS. - Medication Discharge Medications: Ambulatory Orders Amitriptyline HCl [Elavil -] 25 mg PO HS 11/25/18 Emtricitabine/Tenofovir (Tdf) [Truvada 100 mg-150 mg Tablet] 1 each PO DAILY 04/05 - Diagnosis (1) Elevated blood pressure reading without diagnosis of hypertension Status: Acute (2) Elevated liver enzymes Status: Acute (3) Hyperbilirubinemia Status: Acute (4) Thrombocytopenia Status: Acute (5) Alcohol dependence with uncomplicated withdrawal Status: Acute (6) Anxiety and depression Status: Chronic (7) Methadone maintenance therapy patient Status: Chronic (8) Nicotine dependence Status: Chronic Qualifiers: Nicotine product type: cigarettes Substance use status: in withdrawal Qualified Code(s): F17.213 - Nicotine dependence, cigarettes, with withdrawal - AMA Did Patient Leave Against Medical Advice: No
== END 2018-11-29 11:41 | disposition home or self-care (01) | DRG 773 ==
LOC: YASAS 19:57 → Y3N 11-26 01:23
PROVIDERS: ADMIT Surgery; ATTEND Surgery
PROC: HZ2ZZZZ Detoxification Services for Substance Abuse Treatment (ICD-10-PCS; principal; 2018-11-26)
DX: F10.230 Alcohol dependence with withdrawal, uncomplicated (principal); F11.20 Opioid dependence, uncomplicated; F32.9 Major depressive disorder, single episode, unspecified; F41.8 Other specified anxiety disorders; D69.6 Thrombocytopenia, unspecified; E80.6 Other disorders of bilirubin metabolism; R94.5 Abnormal results of liver function studies
CPT/HCPCS: 36415; 80053; 85027; 86593; J0735

== ENCOUNTER 2020-06-07 12:48 | Inpatient (IN) | payer OTHER ==
[2020-06-07 17:28] VITALS: BMI 26.9
[2020-06-07] MEDS ORDERED: MENTHOL/PHENOL 1 EACH UD MM PRN (17:44)
[2020-06-07] MEDS ORDERED: BISMUTH SUBSALICYLATE 524 MG/30 ML UD PO PRN (17:44)
[2020-06-07] MEDS ORDERED: LORazepam 1 MG TABLET PO PRN (17:44)
[2020-06-07] MEDS ORDERED: LORazepam 2 MG TABLET PO ONE (17:44)
[2020-06-07] MEDS ORDERED: MAGNESIUM HYDROX 2400MG/30ML ORAL SUSPENSION 30 ML CUP PO PRN (17:44)
[2020-06-07] MEDS ORDERED: IBUPROFEN 400 MG TABLET (FP) PO PRN (17:44)
[2020-06-07] MEDS ORDERED: NICOTINE POLACRILEX 2 MG GUM BUC PRN (17:44)
[2020-06-07] MEDS ORDERED: MAGNESIUM CITRATE 300 ML BOTTLE PO PRN (17:44)
[2020-06-07] MEDS ORDERED: MAG HYDROX/AL HYDROX/SIMETH 30 ML UNIT-DOSE CUP PO PRN (17:44)
[2020-06-07] MEDS ORDERED: ONDANSETRON *ODT* 4 MG TABLET SL PRN (17:44)
[2020-06-07] MEDS ORDERED: ACETAMINOPHEN 325 MG TABLET (FP) PO PRN ×2 (17:44)
[2020-06-07] MEDS ORDERED: IBUPROFEN 600 MG TABLET (FP) PO PRN (19:45)
[2020-06-07] MEDS ORDERED: MELATONIN 5 MG TABLETS PO SCH (22:00)
[2020-06-07] MEDS: LORazepam 2 MG TABLET PO SCH (22:14)
[2020-06-07] MEDS: THIAMINE HCL 100 MG TABLET (FP) PO SCH (22:14)
[2020-06-07] MEDS: MELATONIN 5 MG TABLETS PO PRN (22:14)
[2020-06-08] MEDS: LORazepam 2 MG TABLET PO SCH ×4 (05:42→22:05)
[2020-06-08] MEDS: METHOCARBAMOL 500 MG TABLET PO PRN ×2 (08:56→22:06)
[2020-06-08] MEDS ORDERED: METHADONE HCL 10 MG TABLET PO ONE (09:29)
[2020-06-08] MEDS ORDERED: cloNIDine HCL 0.1 MG TABLET PO PRN (09:39)
[2020-06-08] MEDS ORDERED: METHADONE 80 MG, METHADONE 5 MG PO ONE (10:15)
[2020-06-08] MEDS ORDERED: METHADONE HCL 40 MG DISPERSABLE TABLET ONE (10:28)
[2020-06-08] MEDS ORDERED: METHADONE HCL 5 MG TABLET ONE (10:28)
[2020-06-08] MEDS: PRENATAL VITAMINS W/ FOLIC ACID TABLET (FP) PO SCH (10:29)
[2020-06-08] MEDS: amLODIPine BESYLATE 10 MG TABLET (FP) PO SCH (10:30)
[2020-06-08 10:32] LABS: HEMATOCRIT 42.2 % (35.4-49); HEMOGLOBIN 13.6 GM/dL (11.7-16.9); MCH 31.4 pg (25.7-33.7); MCHC 32.3 g/dl (32.0-35.9); MEAN CELL VOLUME 97.1 fl (80-96); MEAN PLT VOLUME 11.1 fl (7.5-11.1); PLATELET COUNT 105 K/MM3 (134-434); POTASSIUM 3.8 mmol/L (3.5-5.1); RBC 4.34 M/mm3 (4.00-5.60); RDW 15.6 % (11.9-15.9); WHITE BLOOD COUNT 8.4 K/mm3 (4.0-10.0)
[2020-06-08] MEDS: NICOTINE 14 MG/24 HOURS TOPICAL PATCH TD SCH (10:33)
[2020-06-08 10:38] LABS: BLOOD UREA NITROGEN 11.7 mg/dL (7-18); CALCIUM 8.4 mg/dL (8.5-10.1)
[2020-06-08 10:41] LABS: CREATININE 0.6 mg/dL (0.55-1.3)
[2020-06-08 10:43] LABS: BILIRUBIN,TOTAL 1.8 mg/dL (0.2-1); TOT PROT 6.9 g/dl (6.4-8.2)
[2020-06-08] MEDS: LACTULOSE 20 GM/30 ML UDC (FOR ORAL USE ONLY) PO SCH ×2 (15:22→22:05)
[2020-06-08] MEDS: THIAMINE HCL 100 MG TABLET (FP) PO SCH (22:05)
[2020-06-08] MEDS: MELATONIN 5 MG TABLETS PO PRN (22:07)
[2020-06-09] MEDS ORDERED: METHADONE HCL 5 MG TABLET ONE (04:23)
[2020-06-09] MEDS ORDERED: METHADONE HCL 40 MG DISPERSABLE TABLET ONE (04:23)
[2020-06-09] MEDS: LACTULOSE 20 GM/30 ML UDC (FOR ORAL USE ONLY) PO SCH ×4 (05:48→22:09)
[2020-06-09] MEDS: METHADONE 80 MG, METHADONE 5 MG PO SCH (05:49)
[2020-06-09] MEDS: LORazepam 1 MG TABLET PO SCH ×4 (05:49→22:09)
[2020-06-09] MEDS ORDERED: METHADONE HCL 10 MG TABLET PO SCH (06:00)
[2020-06-09] MEDS: PRENATAL VITAMINS W/ FOLIC ACID TABLET (FP) PO SCH (10:36)
[2020-06-09] MEDS: amLODIPine BESYLATE 10 MG TABLET (FP) PO SCH (10:36)
[2020-06-09] MEDS: NICOTINE 14 MG/24 HOURS TOPICAL PATCH TD SCH (10:37)
[2020-06-09] MEDS: THIAMINE HCL 100 MG TABLET (FP) PO SCH (22:09)
[2020-06-09] MEDS: MELATONIN 5 MG TABLETS PO PRN (22:09)
[2020-06-10] MEDS ORDERED: LORazepam 0.5 MG TABLET PO PRN
[2020-06-10] MEDS ORDERED: METHADONE HCL 5 MG TABLET ONE (04:32)
[2020-06-10] MEDS ORDERED: METHADONE HCL 40 MG DISPERSABLE TABLET ONE (04:32)
[2020-06-10] MEDS: LACTULOSE 20 GM/30 ML UDC (FOR ORAL USE ONLY) PO SCH ×4 (05:35→22:28)
[2020-06-10] MEDS: METHADONE 80 MG, METHADONE 5 MG PO SCH (05:35)
[2020-06-10] MEDS: LORazepam 0.5 MG TABLET PO SCH ×4 (05:36→22:07)
[2020-06-10] MEDS: amLODIPine BESYLATE 10 MG TABLET (FP) PO SCH (10:18)
[2020-06-10] MEDS: PRENATAL VITAMINS W/ FOLIC ACID TABLET (FP) PO SCH (10:18)
[2020-06-10] MEDS: NICOTINE 14 MG/24 HOURS TOPICAL PATCH TD SCH (10:19)
[2020-06-10] MEDS: HYDROCORTISONE 0.5% TOPICAL CREAM 30 GM TUBE TP SCH (22:07)
[2020-06-10] MEDS: THIAMINE HCL 100 MG TABLET (FP) PO SCH (22:07)
[2020-06-10] MEDS: MELATONIN 5 MG TABLETS PO PRN (22:09)
[2020-06-11] MEDS ORDERED: METHADONE HCL 40 MG DISPERSABLE TABLET ONE (04:18)
[2020-06-11] MEDS ORDERED: METHADONE HCL 5 MG TABLET ONE (04:18)
[2020-06-11] MEDS ORDERED: LORazepam 0.5 MG TABLET PO ONE (05:00)
[2020-06-11] MEDS: METHADONE 80 MG, METHADONE 5 MG PO SCH (05:43)
[2020-06-11] MEDS: LACTULOSE 20 GM/30 ML UDC (FOR ORAL USE ONLY) PO SCH ×2 (05:44→10:08)
[2020-06-11 08:47] VITALS: BP 117/79; PULSE 95; TEMP 96.6
[2020-06-11] MEDS: amLODIPine BESYLATE 10 MG TABLET (FP) PO SCH (09:24)
[2020-06-11] MEDS: PRENATAL VITAMINS W/ FOLIC ACID TABLET (FP) PO SCH (09:24)
[2020-06-11] MEDS: NICOTINE 14 MG/24 HOURS TOPICAL PATCH TD SCH (09:25)
[2020-06-11] MEDS: HYDROCORTISONE 0.5% TOPICAL CREAM 30 GM TUBE TP SCH (09:25)
[2020-06-11] MEDS ORDERED: PNEUMOCOCCAL 23 VACCINE 0.5 ML VIAL IM ONE (12:00)
[2020-06-11] MEDS ORDERED: FLU VACCINE (FLULAVAL) PF 60 MCG/0.5 ML SYRINGE 2020-2021 IM ONE (12:00)
[2020-06-11] MEDS ORDERED: PNEUMOC 13-VAL CONJ-DIP CRM/PF 0.5 ML DISP.SYRIN IM ONE (12:00)
== END 2020-06-11 10:07 | disposition home or self-care (01) | DRG 773 ==
LOC: YASAS 12:48 → Y3N 17:55
PROVIDERS: ADMIT Allergy & Immunology; ATTEND Allergy & Immunology
PROC: HZ2ZZZZ Detoxification Services for Substance Abuse Treatment (ICD-10-PCS; principal; 2020-06-07)
DX: F10.230 Alcohol dependence with withdrawal, uncomplicated (principal); F10.220 Alcohol dependence with intoxication, uncomplicated; F11.20 Opioid dependence, uncomplicated; F17.213 Nicotine dependence, cigarettes, with withdrawal; I10 Essential (primary) hypertension; I45.81 Long QT syndrome; M19.90 Unspecified osteoarthritis, unspecified site; B18.2 Chronic viral hepatitis C; E72.20 Disorder of urea cycle metabolism, unspecified; G47.00 Insomnia, unspecified; R73.09 Other abnormal glucose; H55.00 Unspecified nystagmus; R26.2 Difficulty in walking, not elsewhere classified; Z99.89 Dependence on other enabling machines and devices
CPT/HCPCS: 36415; 71046-TC-FY; 80053; 82140; 82962; 84450; 85027; 86780; 93005; 93010; C9803; J0735; U0003

== ENCOUNTER 2020-11-22 14:03 | Inpatient (IN) | payer OTHER ==
[2020-11-22 15:29] VITALS: BMI 25.0
[2020-11-22] MEDS ORDERED: NICOTINE POLACRILEX 2 MG GUM BUC PRN (17:02)
[2020-11-22] MEDS ORDERED: MAGNESIUM HYDROX 2400MG/30ML ORAL SUSPENSION 30 ML CUP PO PRN (17:02)
[2020-11-22] MEDS ORDERED: MENTHOL/PHENOL 1 EACH UD MM PRN (17:02)
[2020-11-22] MEDS ORDERED: ACETAMINOPHEN 325 MG TABLET (FP) PO PRN (17:02)
[2020-11-22] MEDS ORDERED: IBUPROFEN 400 MG TABLET (FP) PO PRN (17:02)
[2020-11-22] MEDS ORDERED: MAGNESIUM CITRATE 300 ML BOTTLE PO PRN (17:02)
[2020-11-22] MEDS ORDERED: ONDANSETRON *ODT* 4 MG TABLET SL PRN (17:02)
[2020-11-22] MEDS ORDERED: BISMUTH SUBSALICYLATE 524 MG/30 ML PO PRN (17:02)
[2020-11-22] MEDS ORDERED: MAG HYDROX/AL HYDROX/SIMETH 30 ML UNIT-DOSE CUP PO PRN (17:02)
[2020-11-22] MEDS ORDERED: diazePAM 5 MG TABLET PO PRN (17:03)
[2020-11-22] MEDS: diazePAM 5 MG TABLET PO SCH ×2 (18:19→22:11)
[2020-11-22] MEDS: MELATONIN 5 MG TABLETS PO SCH (22:11)
[2020-11-22] MEDS: THIAMINE HCL 100 MG TABLET (FP) PO SCH (22:12)
[2020-11-22] MEDS: METHOCARBAMOL 500 MG TABLET PO PRN (22:12)
[2020-11-23] MEDS: diazePAM 5 MG TABLET PO SCH ×4 (05:32→22:02)
[2020-11-23] MEDS: METHOCARBAMOL 500 MG TABLET PO PRN (05:33)
[2020-11-23] MEDS ORDERED: METHADONE HCL 10 MG TABLET PO SCH (07:45)
[2020-11-23] MEDS ORDERED: METHADONE 80 MG, METHADONE 10 MG, METHADONE 5 MG PO ONE (08:15)
[2020-11-23] MEDS ORDERED: METHADONE HCL 5 MG TABLET ONE (09:06)
[2020-11-23] MEDS ORDERED: METHADONE HCL 10 MG TABLET ONE (09:06)
[2020-11-23] MEDS ORDERED: METHADONE HCL 40 MG DISPERSABLE TABLET ONE (09:06)
[2020-11-23] MEDS ORDERED: amLODIPine BESYLATE 10 MG TABLET (FP) PO SCH (10:00)
[2020-11-23] MEDS ORDERED: metoPROLOL SUCCINATE 25 MG TAB.SR.24H (FP) PO SCH (10:00)
[2020-11-23] MEDS ORDERED: PRENATAL VITAMINS W/ FOLIC ACID TABLET (FP) PO SCH (10:00)
[2020-11-23 11:30] LABS: CALCIUM 8.7 mg/dL (8.5-10.1)
[2020-11-23 11:31] LABS: BLOOD UREA NITROGEN 7.7 mg/dL (7-18)
[2020-11-23 11:34] LABS: CREATININE 0.5 mg/dL (0.55-1.3)
[2020-11-23 11:35] LABS: BILIRUBIN,TOTAL 2.8 mg/dL (0.2-1)
[2020-11-23 11:36] LABS: TOT PROT 7.1 g/dl (6.4-8.2)
[2020-11-23 11:40] LABS: HEMATOCRIT 43.1 % (35.4-49); HEMOGLOBIN 14.6 GM/dL (11.7-16.9); MCH 32.6 pg (25.7-33.7); MCHC 33.8 g/dl (32.0-35.9); MEAN CELL VOLUME 96.6 fl (80-96); MEAN PLT VOLUME 12.1 fl (7.5-11.1); PLATELET COUNT 74 K/MM3 (134-434); RBC 4.46 M/mm3 (4.00-5.60); RDW 16.1 % (11.9-15.9); WHITE BLOOD COUNT 9.4 K/mm3 (4.0-10.0)
[2020-11-23 21:09] VITALS: TEMP 97.1
[2020-11-23] MEDS ORDERED: AMITRIPTYLINE HCL 25 MG TABLET PO SCH (22:00)
[2020-11-23] MEDS: THIAMINE HCL 100 MG TABLET (FP) PO SCH (22:01)
[2020-11-23] MEDS: MELATONIN 5 MG TABLETS PO SCH (22:02)
[2020-11-24 03:50] VITALS: BP 129/105; PULSE 102
[2020-11-24] MEDS ORDERED: diazePAM 5 MG TABLET PO SCH (06:00)
[2020-11-24] MEDS ORDERED: METHADONE 80 MG, METHADONE 10 MG, METHADONE 5 MG PO SCH (06:00)
[2020-11-25] MEDS ORDERED: diazePAM 5 MG TABLET PO SCH (06:00)
[2020-11-26] MEDS ORDERED: diazePAM 5 MG TABLET PO ONE (06:00)
== END 2020-11-24 03:45 | disposition short-term general hospital (02) | DRG 773 ==
LOC: YASAS 14:03 → Y3N 16:15
PROVIDERS: ADMIT Allergy & Immunology; ATTEND Allergy & Immunology
PROC: HZ2ZZZZ Detoxification Services for Substance Abuse Treatment (ICD-10-PCS; principal; 2020-11-22)
DX: F10.230 Alcohol dependence with withdrawal, uncomplicated (principal); F11.20 Opioid dependence, uncomplicated; F14.20 Cocaine dependence, uncomplicated; F13.20 Sedative, hypnotic or anxiolytic dependence, uncomplicated; F12.20 Cannabis dependence, uncomplicated; F17.210 Nicotine dependence, cigarettes, uncomplicated; I10 Essential (primary) hypertension; K74.60 Unspecified cirrhosis of liver; B18.2 Chronic viral hepatitis C; M54.5 Low back pain; R29.810 Facial weakness; R39.81 Functional urinary incontinence; F31.9 Bipolar disorder, unspecified; Z88.0 Allergy status to penicillin
CPT/HCPCS: 36415; 80053; 82962; 85027; 86780; C9803; U0003; U0005

== ENCOUNTER 2020-11-24 04:06 | Observation (INO) | payer OTHER ==
[2020-11-24] MEDS ORDERED: levETIRAcetam 500 MG/5 ML INJECTION VIAL IVPB ONE ×2 (04:20→04:22)
[2020-11-24 04:54] LABS: INR 1.15 (0.83-1.09); PROTHROMBIN TIME (PATIENT) 13.8 SEC (9.7-13.0)
[2020-11-24 04:57] LABS: ACTIVATED PTT 26.3 SECONDS (25.2-36.5); BASO % 0.8 % (0-2.0); EOS % 1.8 % (0-4.5); HEMATOCRIT 44.6 % (35.4-49); HEMOGLOBIN 15.1 GM/dL (11.7-16.9); MCH 33.1 pg (25.7-33.7); MCHC 33.9 g/dl (32.0-35.9); MEAN CELL VOLUME 97.6 fl (80-96); MEAN PLT VOLUME 12.1 fl (7.5-11.1); NEUT % 68.4 % (42.8-82.8); PLATELET COUNT 91 K/MM3 (134-434); RBC 4.56 M/mm3 (4.00-5.60); RDW 16.1 % (11.9-15.9); WHITE BLOOD COUNT 9.1 K/mm3 (4.0-10.0)
[2020-11-24 05:04] LABS: CHLORIDE 100 mmol/L (98-107); SODIUM 138 mmol/L (136-145)
[2020-11-24 05:22] LABS: PLATELET ESTIMATE DECREASED
[2020-11-24 05:48] LABS: TOT PROT 7.2 g/dl (6.4-8.2)
[2020-11-24 05:49] LABS: CALCIUM 8.6 mg/dL (8.5-10.1); GLUCOSE,RANDOM 149 mg/dL (74-106)
[2020-11-24 05:50] LABS: ALBUMIN 2.9 g/dl (3.4-5.0); BLOOD UREA NITROGEN 6.5 mg/dL (7-18); CO2 26 mmol/L (21-32)
[2020-11-24 05:52] LABS: CREATININE 0.6 mg/dL (0.55-1.3)
[2020-11-24 05:53] LABS: SGOT/AST 193 U/L (15-37); SGPT/ALT 72 U/L (13-61)
[2020-11-24 05:55] LABS: ALK PHOS 254 U/L (45-117); BILIRUBIN,TOTAL 3.1 mg/dL (0.2-1)
[2020-11-24 06:01] LABS: ANION GAP 12 MMOL/L (8-16)
[2020-11-24] MEDS ORDERED: POTASSIUM CHLORIDE ORAL LIQUID 20 MEQ/15 ML PO ONE (06:02)
[2020-11-24] MEDS ORDERED: POTASSIUM CHLORIDE ORAL LIQUID 20 MEQ/15 ML ONE (06:07)
[2020-11-24] MEDS ORDERED: POTASSIUM CHLORIDE TABS 20 MEQ TABLET.ER (FP) PO ONE ×2 (07:12→08:17)
[2020-11-24] MEDS ORDERED: THIAMINE HCL 200 MG/2 ML VIAL IVPB ONE (08:49)
[2020-11-24] MEDS: SODIUM CHLORIDE 1,000 ML IV SCH (08:55)
[2020-11-24] MEDS ORDERED: THIAMINE HCL 200 MG/2 ML VIAL ONE (08:57)
[2020-11-24] MEDS: ENOXAPARIN NA (PORCINE) 40 MG/0.4 ML DISP.SYRIN SQ SCH (10:00)
[2020-11-24 10:01] LABS: MAGNESIUM 1.5 mg/dL (1.8-2.4)
[2020-11-24 10:03] LABS: BILIRUBIN,DIRECT 1.8 mg/dL (0.0-0.2)
[2020-11-24 10:04] LABS: CHOLESTEROL 160 mg/dL (50-200); PHOSPHOROUS 3.1 mg/dL (2.5-4.9); TRIGLYCERIDES 84 mg/dL (0-150)
[2020-11-24 10:05] LABS: LDL CHOLESTEROL (ONLY SJRH) 91 mg/dL (5-100)
[2020-11-24 10:07] LABS: HDL CHOLESTEROL 56 mg/dL (40-60)
[2020-11-24] MEDS ORDERED: MAGNESIUM SULF 50% (8.12 MEQ/2 ML-1 GM VIAL) IVPB ONE (10:15)
[2020-11-24] MEDS ORDERED: ENOXAPARIN NA (PORCINE) 40 MG/0.4 ML DISP.SYRIN SQ ONE (10:23)
[2020-11-24] MEDS ORDERED: MAGNESIUM 1GM/D5W - 1 GM/100 ML IVPB IVPB ONE ×3 (10:24→17:19)
[2020-11-24] MEDS ORDERED: LORazepam 2 MG/ML SDV VIAL IVPUSH PRN (10:37)
[2020-11-24] MEDS: INSULIN SLIDING SCALE (NOVOLOG) 1 VIAL SQ SCH ×3 (11:55→21:04)
[2020-11-24 12:51] LABS: URINE APPEARANCE CLEAR; URINE BILIRUBIN NEGATIVE (NEGATIVE); URINE COLOR YELLOW; URINE GLUCOSE (UA) NEGATIVE (NEGATIVE); URINE KETONE NEGATIVE (NEGATIVE); URINE LEUK ESTERASE NEGATIVE (NEGATIVE); URINE NITRITE NEGATIVE (NEGATIVE); URINE PROTEIN NEGATIVE (NEGATIVE)
[2020-11-24] MEDS ORDERED: MAGNESIUM SULF 50% (8.12 MEQ/2 ML-1 GM VIAL) ONE (14:01)
[2020-11-24] MEDS ORDERED: diazePAM 5 MG TABLET PO ONE ×2 (15:25→22:52)
[2020-11-24] MEDS ORDERED: diazePAM 5 MG TABLET ONE (15:40)
[2020-11-24] MEDS: FOLIC ACID 1 MG TABLET (FP) PO SCH (18:55)
[2020-11-24] MEDS ORDERED: levETIRAcetam 500 MG/5 ML INJECTION VIAL IVPB SCH (22:00)
[2020-11-25] MEDS: INSULIN SLIDING SCALE (NOVOLOG) 1 VIAL SQ SCH ×2 (06:10→15:14)
[2020-11-25] MEDS ORDERED: INSULIN (NOVOLOG) ASPART 100 UNITS/ML 10ML VIAL ONE (06:21)
[2020-11-25 07:12] LABS: BASO % 1.5 % (0-2.0); EOS % 2.6 % (0-4.5); HEMATOCRIT 41.3 % (35.4-49); HEMOGLOBIN 13.8 GM/dL (11.7-16.9); LYMPH % 24.3 % (8-40); MCH 32.3 pg (25.7-33.7); MCHC 33.5 g/dl (32.0-35.9); MEAN CELL VOLUME 96.3 fl (80-96); MEAN PLT VOLUME 11.7 fl (7.5-11.1); MONO % 10.6 % (3.8-10.2); PLATELET COUNT 69 K/MM3 (134-434); RBC 4.29 M/mm3 (4.00-5.60); RDW 16.5 % (11.9-15.9); WHITE BLOOD COUNT 6.7 K/mm3 (4.0-10.0)
[2020-11-25 07:28] LABS: CALCIUM 8.6 mg/dL (8.5-10.1)
[2020-11-25 07:29] LABS: ALBUMIN 2.9 g/dl (3.4-5.0); MAGNESIUM 1.6 mg/dL (1.8-2.4)
[2020-11-25 07:31] LABS: CREATININE 0.6 mg/dL (0.55-1.3)
[2020-11-25 07:33] LABS: TOT PROT 6.7 g/dl (6.4-8.2)
[2020-11-25 07:35] LABS: BILIRUBIN,TOTAL 2.5 mg/dL (0.2-1); BLOOD UREA NITROGEN 7.7 mg/dL (7-18); PHOSPHOROUS 2.9 mg/dL (2.5-4.9)
[2020-11-25] MEDS ORDERED: POTASSIUM CHLORIDE ORAL LIQUID 20 MEQ/15 ML PO ONE (08:45)
[2020-11-25] MEDS ORDERED: MAGNESIUM 2GM/50ML STERILE WATER IVPB IVPB ONE (08:45)
[2020-11-25] MEDS ORDERED: ALBUTEROL SO4 HFA INHALER IH PRN (09:06)
[2020-11-25] MEDS ORDERED: diazePAM 5 MG TABLET PO PRN (09:12)
[2020-11-25] MEDS ORDERED: PAROXETINE HCL 10 MG, PAROXETINE HCL 20 MG PO SCH (10:00)
[2020-11-25] MEDS ORDERED: PARoxetine HCL 30 MG TABLET PO SCH (10:00)
[2020-11-25] MEDS: amLODIPine BESYLATE 10 MG TABLET (FP) PO SCH (11:00)
[2020-11-25] MEDS: FOLIC ACID 1 MG TABLET (FP) PO SCH (11:00)
[2020-11-25] MEDS: PARoxetine HCL 10 MG TABLET PO SCH (11:00)
[2020-11-25] MEDS: busPIRone HCL 5 MG TABLET PO SCH (11:00)
[2020-11-25] MEDS: metoPROLOL SUCCINATE 25 MG TAB.SR.24H (FP) PO SCH (11:00)
[2020-11-25] MEDS: THIAMINE HCL 100 MG TABLET (FP) PO SCH (11:02)
[2020-11-25] MEDS: ENOXAPARIN NA (PORCINE) 40 MG/0.4 ML DISP.SYRIN SQ SCH (11:02)
[2020-11-25] MEDS: DEXTROSE 5%-0.45% SALINE 1,000 ML IV SCH (11:10)
[2020-11-25] MEDS: SODIUM CHLORIDE 1,000 ML IV SCH (11:11)
[2020-11-25] MEDS: diazePAM 5 MG TABLET PO SCH ×3 (11:46→22:18)
[2020-11-25] MEDS: METHADONE HCL 40 MG DISPERSABLE TABLET PO SCH (12:33)
[2020-11-25] MEDS: GABAPENTIN 300 MG CAPSULE PO SCH ×2 (14:58→22:19)
[2020-11-25 16:09] VITALS: BMI 24.1
[2020-11-26] MEDS: diazePAM 5 MG TABLET PO SCH ×3 (04:48→17:55)
[2020-11-26] MEDS: GABAPENTIN 300 MG CAPSULE PO SCH ×2 (06:25→13:29)
[2020-11-26] MEDS: METHADONE HCL 40 MG DISPERSABLE TABLET PO SCH (06:25)
[2020-11-26 08:21] LABS: HEMATOCRIT 42.9 % (35.4-49); HEMOGLOBIN 14.6 GM/dL (11.7-16.9); MCH 32.7 pg (25.7-33.7); MEAN CELL VOLUME 96.2 fl (80-96); MEAN PLT VOLUME 11.7 fl (7.5-11.1); PLATELET COUNT 83 K/MM3 (134-434); RBC 4.46 M/mm3 (4.00-5.60); RDW 16.1 % (11.9-15.9); WHITE BLOOD COUNT 8.2 K/mm3 (4.0-10.0)
[2020-11-26 08:32] LABS: ALBUMIN 3.1 g/dl (3.4-5.0)
[2020-11-26 08:33] LABS: CALCIUM 8.3 mg/dL (8.5-10.1)
[2020-11-26 08:34] LABS: BLOOD UREA NITROGEN 6.6 mg/dL (7-18); MAGNESIUM 1.7 mg/dL (1.8-2.4)
[2020-11-26 08:36] LABS: CREATININE 0.6 mg/dL (0.55-1.3); PHOSPHOROUS 3.4 mg/dL (2.5-4.9)
[2020-11-26 08:38] LABS: BILIRUBIN,TOTAL 2.8 mg/dL (0.2-1)
[2020-11-26] MEDS: busPIRone HCL 5 MG TABLET PO SCH (11:20)
[2020-11-26] MEDS: THIAMINE HCL 100 MG TABLET (FP) PO SCH (11:20)
[2020-11-26] MEDS: metoPROLOL SUCCINATE 25 MG TAB.SR.24H (FP) PO SCH (11:21)
[2020-11-26] MEDS: FOLIC ACID 1 MG TABLET (FP) PO SCH (11:21)
[2020-11-26] MEDS: amLODIPine BESYLATE 10 MG TABLET (FP) PO SCH (11:21)
[2020-11-26] MEDS: ENOXAPARIN NA (PORCINE) 40 MG/0.4 ML DISP.SYRIN SQ SCH (11:21)
[2020-11-26] MEDS: PARoxetine HCL 10 MG TABLET PO SCH (11:22)
[2020-11-26] MEDS: DEXTROSE 5%-0.45% SALINE 1,000 ML IV SCH (11:36)
[2020-11-26] MEDS ORDERED: MAGNESIUM OXIDE 400 MG TABLET (FP) PO ONE (15:00)
[2020-11-26 18:02] VITALS: BP 114/78; PULSE 62; TEMP 99
[2020-11-27] MEDS ORDERED: diazePAM 5 MG TABLET PO SCH (06:00)
[2020-11-27] MEDS ORDERED: MAGNESIUM OXIDE 400 MG TABLET (FP) PO SCH (10:00)
[2020-11-27 14:08] LABS: HEP B CORE AB, TOT Positive (Negative)
[2020-11-28] MEDS ORDERED: diazePAM 5 MG TABLET PO SCH (06:00)
[2020-11-29] MEDS ORDERED: diazePAM 5 MG TABLET PO ONE (06:00)
== END 2020-11-26 19:38 | disposition other institution (70) ==
LOC: JER 04:06 → UNDOADMOB 07:21 → INTOOBSV 07:21 → JERBED 07:21 → J4W 17:43
PROVIDERS: ATTEND Internal Medicine
PROC: 3E033GC Introduction of Other Therapeutic Substance into Peripheral Vein, Percutaneous Approach (ICD-10-PCS; principal; 2020-11-24)
PROC: 3E033NZ Introduction of Analgesics, Hypnotics, Sedatives into Peripheral Vein, Percutaneous Approach (ICD-10-PCS; 2020-11-24)
PROC: 3E033GC Introduction of Other Therapeutic Substance into Peripheral Vein, Percutaneous Approach (ICD-10-PCS; 2020-11-24)
PROC: 3E033GC Introduction of Other Therapeutic Substance into Peripheral Vein, Percutaneous Approach (ICD-10-PCS; 2020-11-24)
PROC: 3E033GC Introduction of Other Therapeutic Substance into Peripheral Vein, Percutaneous Approach (ICD-10-PCS; 2020-11-24)
DX: R56.9 Unspecified convulsions (principal); E87.6 Hypokalemia; K74.60 Unspecified cirrhosis of liver; D69.6 Thrombocytopenia, unspecified; I10 Essential (primary) hypertension; K80.20 Calculus of gallbladder without cholecystitis without obstruction; R74.01 Elevation of levels of liver transaminase levels; B18.2 Chronic viral hepatitis C; F10.20 Alcohol dependence, uncomplicated; F13.20 Sedative, hypnotic or anxiolytic dependence, uncomplicated; F41.9 Anxiety disorder, unspecified; F31.9 Bipolar disorder, unspecified; Z96.642 Presence of left artificial hip joint
CPT/HCPCS: 36415; 70450-TC; 71045-TC-FY; 74181-TC; 76705-TC; 80053; 80061; 81003; 82140; 82248; 82962; 83036; 83721; 83735; 84100; 84484; 85025; 85027; 85610; 85730; 86704; 86706; 86707; 86708; 86709; 86803; 87340; 93005; 93010; 96365; 96372; 96375; 96376; 97116-GP; 97161-GP; 99285-25; C9803; G0378; U0003; U0005

== ENCOUNTER 2020-11-26 18:16 | Inpatient (IN) | payer OTHER ==
[2020-11-26 19:13] VITALS: BMI 23.8
[2020-11-26] MEDS ORDERED: MAGNESIUM HYDROX 2400MG/30ML ORAL SUSPENSION 30 ML CUP PO PRN (19:48)
[2020-11-26] MEDS ORDERED: guaiFENesin 200 MG/10 ML 10 ML UNIT-DOSE CUPS PO PRN (19:48)
[2020-11-26] MEDS ORDERED: MAGNESIUM CITRATE 300 ML BOTTLE PO PRN (19:48)
[2020-11-26] MEDS ORDERED: P-EPHED 60MG/TRIPROLIDI 2.5MG TABLET PO PRN (19:48)
[2020-11-26] MEDS ORDERED: ACETAMINOPHEN 325 MG TABLET (FP) PO PRN (19:48)
[2020-11-27] MEDS: hydrOXYzine PAMOATE 25 MG CAPSULE (FP) PO SCH ×6 (00:31→22:02)
[2020-11-27] MEDS: MELATONIN 5 MG TABLETS PO SCH ×2 (00:31→22:02)
[2020-11-27] MEDS: THIAMINE HCL 100 MG TABLET (FP) PO SCH ×2 (00:31→22:02)
[2020-11-27] MEDS: METHADONE HCL 40 MG DISPERSABLE TABLET PO SCH (09:59)
[2020-11-27 10:00] LABS: HEMATOCRIT 39.9 % (35.4-49); HEMOGLOBIN 13.2 GM/dL (11.7-16.9); MCH 32.2 pg (25.7-33.7); MCHC 33.1 g/dl (32.0-35.9); MEAN CELL VOLUME 97.4 fl (80-96); MEAN PLT VOLUME 11.6 fl (7.5-11.1); PLATELET COUNT 81 K/MM3 (134-434); RDW 15.7 % (11.9-15.9); WHITE BLOOD COUNT 10.6 K/mm3 (4.0-10.0)
[2020-11-27] MEDS: NICOTINE 7 MG/24 HOURS TOPICAL PATCH TD SCH (10:01)
[2020-11-27] MEDS: PRENATAL VITAMINS W/ FOLIC ACID TABLET (FP) PO SCH (10:01)
[2020-11-27 10:19] LABS: BLOOD UREA NITROGEN 10.2 mg/dL (7-18); CALCIUM 8.4 mg/dL (8.5-10.1); CREATININE 0.7 mg/dL (0.55-1.3)
[2020-11-27 10:20] LABS: ALBUMIN 2.8 g/dl (3.4-5.0); BILIRUBIN,TOTAL 2.4 mg/dL (0.2-1); TOT PROT 6.6 g/dl (6.4-8.2)
[2020-11-27 15:06] LABS: URINE APPEARANCE CLEAR; URINE BILIRUBIN NEGATIVE (NEGATIVE); URINE COLOR YELLOW; URINE GLUCOSE (UA) NEGATIVE (NEGATIVE); URINE KETONE NEGATIVE (NEGATIVE); URINE LEUK ESTERASE NEGATIVE (NEGATIVE); URINE NITRITE NEGATIVE (NEGATIVE); URINE PROTEIN NEGATIVE (NEGATIVE)
[2020-11-28] MEDS: METHADONE HCL 40 MG DISPERSABLE TABLET PO SCH (06:10)
[2020-11-28] MEDS: hydrOXYzine PAMOATE 25 MG CAPSULE (FP) PO SCH ×5 (06:11→21:31)
[2020-11-28] MEDS: NICOTINE 7 MG/24 HOURS TOPICAL PATCH TD SCH (10:27)
[2020-11-28] MEDS: PRENATAL VITAMINS W/ FOLIC ACID TABLET (FP) PO SCH (10:27)
[2020-11-28] MEDS: THIAMINE HCL 100 MG TABLET (FP) PO SCH (21:31)
[2020-11-28] MEDS: MELATONIN 5 MG TABLETS PO SCH (21:31)
[2020-11-28] MEDS: IBUPROFEN 400 MG TABLET (FP) PO PRN (21:33)
[2020-11-29] MEDS: METHADONE HCL 40 MG DISPERSABLE TABLET PO SCH (06:07)
[2020-11-29] MEDS: hydrOXYzine PAMOATE 25 MG CAPSULE (FP) PO SCH ×5 (06:07→21:35)
[2020-11-29] MEDS: NICOTINE 7 MG/24 HOURS TOPICAL PATCH TD SCH (10:08)
[2020-11-29] MEDS: PRENATAL VITAMINS W/ FOLIC ACID TABLET (FP) PO SCH (10:08)
[2020-11-29] MEDS: amLODIPine BESYLATE 10 MG TABLET (FP) PO SCH (11:51)
[2020-11-29] MEDS: metoPROLOL SUCCINATE 25 MG TAB.SR.24H (FP) PO SCH (11:51)
[2020-11-29] MEDS: THIAMINE HCL 100 MG TABLET (FP) PO SCH (21:35)
[2020-11-29] MEDS: MELATONIN 5 MG TABLETS PO SCH (21:35)
[2020-11-30] MEDS ORDERED: TRIMETHOBENZAMIDE HCL 200MG/2ML INJ IM PRN (07:25)
[2020-11-30] MEDS ORDERED: TRIMETHOBENZAMIDE HCL 200MG/2ML INJ IM ONE (07:45)
[2020-11-30] MEDS: hydrOXYzine PAMOATE 25 MG CAPSULE (FP) PO SCH ×6 (08:34→21:31)
[2020-11-30] MEDS: METHADONE HCL 40 MG DISPERSABLE TABLET PO SCH (08:34)
[2020-11-30] MEDS: PRENATAL VITAMINS W/ FOLIC ACID TABLET (FP) PO SCH (10:02)
[2020-11-30] MEDS: NICOTINE 7 MG/24 HOURS TOPICAL PATCH TD SCH (10:03)
[2020-11-30] MEDS: metoPROLOL SUCCINATE 25 MG TAB.SR.24H (FP) PO SCH (10:03)
[2020-11-30] MEDS: amLODIPine BESYLATE 10 MG TABLET (FP) PO SCH (10:03)
[2020-11-30] MEDS: IBUPROFEN 400 MG TABLET (FP) PO PRN (19:07)
[2020-11-30] MEDS: THIAMINE HCL 100 MG TABLET (FP) PO SCH (21:31)
[2020-11-30] MEDS: MELATONIN 5 MG TABLETS PO SCH (21:31)
[2020-12-01] MEDS: METHADONE HCL 40 MG DISPERSABLE TABLET PO SCH (06:48)
[2020-12-01] MEDS: hydrOXYzine PAMOATE 25 MG CAPSULE (FP) PO SCH ×5 (06:50→21:43)
[2020-12-01] MEDS: MAG HYDROX/AL HYDROX/SIMETH 30 ML UNIT-DOSE CUP PO PRN ×2 (07:54→16:51)
[2020-12-01] MEDS: PRENATAL VITAMINS W/ FOLIC ACID TABLET (FP) PO SCH (10:10)
[2020-12-01] MEDS: NICOTINE 7 MG/24 HOURS TOPICAL PATCH TD SCH (10:10)
[2020-12-01] MEDS: metoPROLOL SUCCINATE 25 MG TAB.SR.24H (FP) PO SCH (10:11)
[2020-12-01] MEDS: amLODIPine BESYLATE 10 MG TABLET (FP) PO SCH (10:11)
[2020-12-01] MEDS: MELATONIN 5 MG TABLETS PO SCH (21:43)
[2020-12-01] MEDS: THIAMINE HCL 100 MG TABLET (FP) PO SCH (21:43)
[2020-12-02] MEDS: METHADONE HCL 40 MG DISPERSABLE TABLET PO SCH (06:13)
[2020-12-02] MEDS: hydrOXYzine PAMOATE 25 MG CAPSULE (FP) PO SCH ×6 (06:14→21:33)
[2020-12-02] MEDS: PRENATAL VITAMINS W/ FOLIC ACID TABLET (FP) PO SCH (10:21)
[2020-12-02] MEDS: NICOTINE 7 MG/24 HOURS TOPICAL PATCH TD SCH (10:21)
[2020-12-02] MEDS: amLODIPine BESYLATE 10 MG TABLET (FP) PO SCH (10:22)
[2020-12-02] MEDS: metoPROLOL SUCCINATE 25 MG TAB.SR.24H (FP) PO SCH (10:22)
[2020-12-02] MEDS: MELATONIN 5 MG TABLETS PO SCH (21:32)
[2020-12-02] MEDS: THIAMINE HCL 100 MG TABLET (FP) PO SCH (21:32)
[2020-12-03] MEDS: METHADONE HCL 40 MG DISPERSABLE TABLET PO SCH (06:43)
[2020-12-03] MEDS: hydrOXYzine PAMOATE 25 MG CAPSULE (FP) PO SCH ×5 (06:44→21:14)
[2020-12-03] MEDS: PRENATAL VITAMINS W/ FOLIC ACID TABLET (FP) PO SCH (10:06)
[2020-12-03] MEDS: amLODIPine BESYLATE 10 MG TABLET (FP) PO SCH (10:06)
[2020-12-03] MEDS: metoPROLOL SUCCINATE 25 MG TAB.SR.24H (FP) PO SCH (10:06)
[2020-12-03] MEDS: NICOTINE 7 MG/24 HOURS TOPICAL PATCH TD SCH (10:06)
[2020-12-03] MEDS: LOPERAMIDE HCL 2 MG CAPSULE PO PRN ×2 (10:08→21:14)
[2020-12-03] MEDS: THIAMINE HCL 100 MG TABLET (FP) PO SCH (21:14)
[2020-12-03] MEDS: MELATONIN 5 MG TABLETS PO SCH (21:14)
[2020-12-04] MEDS: hydrOXYzine PAMOATE 25 MG CAPSULE (FP) PO SCH ×5 (06:30→21:28)
[2020-12-04] MEDS: METHADONE HCL 40 MG DISPERSABLE TABLET PO SCH (06:30)
[2020-12-04] MEDS: amLODIPine BESYLATE 10 MG TABLET (FP) PO SCH (09:51)
[2020-12-04] MEDS: PRENATAL VITAMINS W/ FOLIC ACID TABLET (FP) PO SCH (09:51)
[2020-12-04] MEDS: metoPROLOL SUCCINATE 25 MG TAB.SR.24H (FP) PO SCH (09:51)
[2020-12-04] MEDS: NICOTINE POLACRILEX 2 MG GUM BC PRN (09:52)
[2020-12-04] MEDS: NICOTINE 7 MG/24 HOURS TOPICAL PATCH TD SCH (09:52)
[2020-12-04] MEDS: MELATONIN 5 MG TABLETS PO SCH (21:28)
[2020-12-04] MEDS: THIAMINE HCL 100 MG TABLET (FP) PO SCH (21:28)
[2020-12-04] MEDS: LOPERAMIDE HCL 2 MG CAPSULE PO PRN (21:30)
[2020-12-05] MEDS: METHADONE HCL 40 MG DISPERSABLE TABLET PO SCH (06:11)
[2020-12-05] MEDS: hydrOXYzine PAMOATE 25 MG CAPSULE (FP) PO SCH ×5 (06:12→21:29)
[2020-12-05] MEDS: amLODIPine BESYLATE 10 MG TABLET (FP) PO SCH (09:39)
[2020-12-05] MEDS: PRENATAL VITAMINS W/ FOLIC ACID TABLET (FP) PO SCH (09:40)
[2020-12-05] MEDS: metoPROLOL SUCCINATE 25 MG TAB.SR.24H (FP) PO SCH (09:40)
[2020-12-05] MEDS: NICOTINE POLACRILEX 2 MG GUM BC PRN (09:40)
[2020-12-05] MEDS: NICOTINE 7 MG/24 HOURS TOPICAL PATCH TD SCH (09:40)
[2020-12-05] MEDS: MELATONIN 5 MG TABLETS PO SCH (21:29)
[2020-12-05] MEDS: THIAMINE HCL 100 MG TABLET (FP) PO SCH (21:29)
[2020-12-06] MEDS: METHADONE HCL 40 MG DISPERSABLE TABLET PO SCH (06:20)
[2020-12-06] MEDS: hydrOXYzine PAMOATE 25 MG CAPSULE (FP) PO SCH ×5 (06:21→21:27)
[2020-12-06] MEDS: PRENATAL VITAMINS W/ FOLIC ACID TABLET (FP) PO SCH (09:48)
[2020-12-06] MEDS: NICOTINE 7 MG/24 HOURS TOPICAL PATCH TD SCH (09:48)
[2020-12-06] MEDS: amLODIPine BESYLATE 10 MG TABLET (FP) PO SCH (09:48)
[2020-12-06] MEDS: metoPROLOL SUCCINATE 25 MG TAB.SR.24H (FP) PO SCH (09:48)
[2020-12-06] MEDS: NICOTINE POLACRILEX 2 MG GUM BC PRN ×2 (09:49→21:27)
[2020-12-06] MEDS: THIAMINE HCL 100 MG TABLET (FP) PO SCH (21:27)
[2020-12-06] MEDS: MELATONIN 5 MG TABLETS PO SCH (21:27)
[2020-12-07] MEDS: hydrOXYzine PAMOATE 25 MG CAPSULE (FP) PO SCH ×5 (06:07→21:49)
[2020-12-07] MEDS: METHADONE HCL 40 MG DISPERSABLE TABLET PO SCH (06:07)
[2020-12-07] MEDS: metoPROLOL SUCCINATE 25 MG TAB.SR.24H (FP) PO SCH (10:16)
[2020-12-07] MEDS: PRENATAL VITAMINS W/ FOLIC ACID TABLET (FP) PO SCH (10:16)
[2020-12-07] MEDS: NICOTINE 7 MG/24 HOURS TOPICAL PATCH TD SCH (10:16)
[2020-12-07] MEDS: amLODIPine BESYLATE 10 MG TABLET (FP) PO SCH (10:16)
[2020-12-07] MEDS: THIAMINE HCL 100 MG TABLET (FP) PO SCH (21:49)
[2020-12-07] MEDS: MELATONIN 5 MG TABLETS PO SCH (21:49)
[2020-12-08] MEDS: hydrOXYzine PAMOATE 25 MG CAPSULE (FP) PO SCH ×5 (06:07→21:24)
[2020-12-08] MEDS: METHADONE HCL 40 MG DISPERSABLE TABLET PO SCH (06:07)
[2020-12-08] MEDS: PRENATAL VITAMINS W/ FOLIC ACID TABLET (FP) PO SCH (09:45)
[2020-12-08] MEDS: amLODIPine BESYLATE 10 MG TABLET (FP) PO SCH (09:45)
[2020-12-08] MEDS: metoPROLOL SUCCINATE 25 MG TAB.SR.24H (FP) PO SCH (09:45)
[2020-12-08] MEDS: NICOTINE 7 MG/24 HOURS TOPICAL PATCH TD SCH (09:46)
[2020-12-08] MEDS ORDERED: COVID-19 VAC,AD26(JANSSEN)/PF 0.5 ML IM ONE (12:00)
[2020-12-08] MEDS: MELATONIN 5 MG TABLETS PO SCH (21:24)
[2020-12-08] MEDS: THIAMINE HCL 100 MG TABLET (FP) PO SCH (21:24)
[2020-12-09] MEDS: hydrOXYzine PAMOATE 25 MG CAPSULE (FP) PO SCH ×5 (06:12→21:43)
[2020-12-09] MEDS: METHADONE HCL 40 MG DISPERSABLE TABLET PO SCH (06:12)
[2020-12-09] MEDS: NICOTINE 7 MG/24 HOURS TOPICAL PATCH TD SCH (09:49)
[2020-12-09] MEDS: metoPROLOL SUCCINATE 25 MG TAB.SR.24H (FP) PO SCH (09:49)
[2020-12-09] MEDS: amLODIPine BESYLATE 10 MG TABLET (FP) PO SCH (09:49)
[2020-12-09] MEDS: PRENATAL VITAMINS W/ FOLIC ACID TABLET (FP) PO SCH (09:50)
[2020-12-09] MEDS: THIAMINE HCL 100 MG TABLET (FP) PO SCH (21:43)
[2020-12-09] MEDS: MELATONIN 5 MG TABLETS PO SCH (21:43)
[2020-12-10] MEDS: METHADONE HCL 40 MG DISPERSABLE TABLET PO SCH (06:24)
[2020-12-10] MEDS: hydrOXYzine PAMOATE 25 MG CAPSULE (FP) PO SCH ×2 (06:25→09:34)
[2020-12-10 07:25] VITALS: BP 120/60; PULSE 68; TEMP 97.3
[2020-12-10] MEDS: NICOTINE 7 MG/24 HOURS TOPICAL PATCH TD SCH (09:33)
[2020-12-10] MEDS: metoPROLOL SUCCINATE 25 MG TAB.SR.24H (FP) PO SCH (09:34)
[2020-12-10] MEDS: PRENATAL VITAMINS W/ FOLIC ACID TABLET (FP) PO SCH (09:34)
[2020-12-10] MEDS: amLODIPine BESYLATE 10 MG TABLET (FP) PO SCH (09:34)
== END 2020-12-10 09:40 | disposition home or self-care (01) | DRG 772 ==
LOC: YASAS 18:16 → Y5N 21:34
PROVIDERS: ADMIT Allergy & Immunology; ATTEND Allergy & Immunology
PROC: HZ42ZZZ Group Counseling for Substance Abuse Treatment, Cognitive-Behavioral (ICD-10-PCS; principal; 2020-11-26)
DX: F14.20 Cocaine dependence, uncomplicated (principal); F12.20 Cannabis dependence, uncomplicated; F11.20 Opioid dependence, uncomplicated; F17.210 Nicotine dependence, cigarettes, uncomplicated; I10 Essential (primary) hypertension; K74.60 Unspecified cirrhosis of liver; B18.2 Chronic viral hepatitis C; M19.90 Unspecified osteoarthritis, unspecified site; R26.2 Difficulty in walking, not elsewhere classified; Z99.89 Dependence on other enabling machines and devices; Z88.0 Allergy status to penicillin
CPT/HCPCS: 0031A; 36415; 80053; 81003; 82140; 85027; 86780; 91303

== ENCOUNTER 2021-06-09 13:40 | Inpatient (IN) | payer OTHER ==
[2021-06-09] MEDS ORDERED: LORazepam 1 MG TABLET PO PRN (15:30)
[2021-06-09] MEDS ORDERED: MAGNESIUM HYDROX 2400MG/30ML ORAL SUSPENSION 30 ML CUP PO PRN (15:30)
[2021-06-09] MEDS ORDERED: BISMUTH SUBSALICYLATE 524 MG/30 ML PO PRN (15:30)
[2021-06-09] MEDS ORDERED: MENTHOL/PHENOL 1 EACH UD MM PRN (15:30)
[2021-06-09] MEDS ORDERED: NICOTINE 10 MG CARTRIDGE (INHALER) IH PRN (15:30)
[2021-06-09] MEDS ORDERED: ACETAMINOPHEN 325 MG TABLET (FP) PO PRN ×2 (15:30)
[2021-06-09] MEDS ORDERED: IBUPROFEN 400 MG TABLET (FP) PO PRN (15:30)
[2021-06-09] MEDS ORDERED: ONDANSETRON *ODT* 4 MG TABLET SL PRN (15:30)
[2021-06-09] MEDS ORDERED: MAG HYDROX/AL HYDROX/SIMETH 30 ML UNIT-DOSE CUP PO PRN (15:30)
[2021-06-09] MEDS ORDERED: MAGNESIUM CITRATE 300 ML BOTTLE PO PRN (15:30)
[2021-06-09] MEDS ORDERED: METHOCARBAMOL 500 MG TABLET PO PRN (15:30)
[2021-06-09 15:48] VITALS: BMI 26.6
[2021-06-09] MEDS: LORazepam 2 MG TABLET PO SCH ×2 (19:48→22:47)
[2021-06-09] MEDS: hydrOXYzine PAMOATE 25 MG CAPSULE (FP) PO SCH ×2 (19:48→22:47)
[2021-06-09] MEDS ORDERED: MELATONIN 5 MG TABLETS PO SCH (22:00)
[2021-06-09] MEDS: THIAMINE HCL 100 MG TABLET (FP) PO SCH (22:47)
[2021-06-10] MEDS: LORazepam 2 MG TABLET PO SCH ×4 (05:45→22:59)
[2021-06-10] MEDS: hydrOXYzine PAMOATE 25 MG CAPSULE (FP) PO SCH ×5 (05:45→23:01)
[2021-06-10] MEDS: amLODIPine BESYLATE 10 MG TABLET (FP) PO SCH (10:21)
[2021-06-10] MEDS: PRENATAL VITAMINS W/ FOLIC ACID TABLET (FP) PO SCH (10:21)
[2021-06-10] MEDS: metoPROLOL SUCCINATE 25 MG TAB.SR.24H (FP) PO SCH (11:45)
[2021-06-10 12:27] LABS: HEMATOCRIT 42.4 % (35.4-49); HEMOGLOBIN 14.3 GM/dL (11.7-16.9); MCH 33.4 pg (25.7-33.7); MCHC 33.7 g/dl (32.0-35.9); MEAN CELL VOLUME 99.2 fl (80-96); MEAN PLT VOLUME 10.7 fl (7.5-11.1); PLATELET COUNT 91 10^3/uL (134-434); RBC 4.27 M/mm3 (4.00-5.60); RDW 13.9 % (11.9-15.9)
[2021-06-10 12:40] LABS: CALCIUM 8.6 mg/dL (8.5-10.1)
[2021-06-10 12:41] LABS: BLOOD UREA NITROGEN 9.4 mg/dL (7-18)
[2021-06-10 12:44] LABS: CREATININE 0.5 mg/dL (0.55-1.3)
[2021-06-10 12:46] LABS: BILIRUBIN,TOTAL 3.1 mg/dL (0.2-1); TOT PROT 7.2 g/dl (6.4-8.2)
[2021-06-10] MEDS: THIAMINE HCL 100 MG TABLET (FP) PO SCH (22:59)
[2021-06-11] MEDS: hydrOXYzine PAMOATE 25 MG CAPSULE (FP) PO SCH ×5 (05:23→22:59)
[2021-06-11] MEDS: LORazepam 1 MG TABLET PO SCH ×4 (05:23→22:57)
[2021-06-11] MEDS: metoPROLOL SUCCINATE 25 MG TAB.SR.24H (FP) PO SCH (10:22)
[2021-06-11] MEDS: amLODIPine BESYLATE 10 MG TABLET (FP) PO SCH (10:22)
[2021-06-11] MEDS: PRENATAL VITAMINS W/ FOLIC ACID TABLET (FP) PO SCH (10:22)
[2021-06-11] MEDS: methaDONE 40 MG, methaDONE 10 MG PO SCH (13:00)
[2021-06-11] MEDS ORDERED: methaDONE HCL 40 MG DISPERSABLE TABLET ONE (14:05)
[2021-06-11] MEDS ORDERED: methaDONE HCL 10 MG TABLET ONE (14:05)
[2021-06-11] MEDS: THIAMINE HCL 100 MG TABLET (FP) PO SCH (22:57)
[2021-06-12] MEDS ORDERED: LORazepam 0.5 MG TABLET PO PRN
[2021-06-12] MEDS ORDERED: methaDONE HCL 40 MG DISPERSABLE TABLET ONE (04:30)
[2021-06-12] MEDS ORDERED: methaDONE HCL 10 MG TABLET ONE (04:30)
[2021-06-12] MEDS: methaDONE 40 MG, methaDONE 10 MG PO SCH (05:42)
[2021-06-12] MEDS: hydrOXYzine PAMOATE 25 MG CAPSULE (FP) PO SCH ×5 (05:42→23:06)
[2021-06-12] MEDS: LORazepam 0.5 MG TABLET PO SCH ×4 (05:42→23:06)
[2021-06-12] MEDS: amLODIPine BESYLATE 10 MG TABLET (FP) PO SCH (11:37)
[2021-06-12] MEDS: PRENATAL VITAMINS W/ FOLIC ACID TABLET (FP) PO SCH (11:37)
[2021-06-12] MEDS: metoPROLOL SUCCINATE 25 MG TAB.SR.24H (FP) PO SCH (11:37)
[2021-06-12] MEDS: THIAMINE HCL 100 MG TABLET (FP) PO SCH (23:06)
[2021-06-12] MEDS ORDERED: cloNIDine HCL 0.1 MG TABLET PO ONE (23:46)
[2021-06-13] MEDS ORDERED: LORazepam 0.5 MG TABLET PO ONE (05:00)
[2021-06-13] MEDS: hydrOXYzine PAMOATE 25 MG CAPSULE (FP) PO SCH ×2 (05:53→10:22)
[2021-06-13 08:53] VITALS: BP 128/76; PULSE 73; TEMP 97.3
[2021-06-13] MEDS ORDERED: methaDONE 40 MG, methaDONE 30 MG PO ONE (10:00)
[2021-06-13] MEDS ORDERED: methaDONE HCL 10 MG TABLET PO ONE (10:00)
[2021-06-13] MEDS: amLODIPine BESYLATE 10 MG TABLET (FP) PO SCH (10:21)
[2021-06-13] MEDS: metoPROLOL SUCCINATE 25 MG TAB.SR.24H (FP) PO SCH (10:22)
[2021-06-13] MEDS: PRENATAL VITAMINS W/ FOLIC ACID TABLET (FP) PO SCH (10:22)
[2021-06-13 10:50] LABS: ALBUMIN 2.7 g/dl (3.4-5.0)
[2021-06-13 10:55] LABS: BILIRUBIN,DIRECT 0.7 mg/dL (0.0-0.2); TOT PROT 6.8 g/dl (6.4-8.2)
[2021-06-14] MEDS ORDERED: methaDONE 40 MG, methaDONE 30 MG PO SCH (06:00)
[2021-06-14] MEDS ORDERED: methaDONE HCL 40 MG DISPERSABLE TABLET PO SCH (06:00)
== END 2021-06-13 10:01 | disposition home or self-care (01) | DRG 773 ==
LOC: YASAS 13:40 → Y6N 17:12
PROVIDERS: ADMIT Allergy & Immunology; ATTEND Allergy & Immunology
PROC: HZ2ZZZZ Detoxification Services for Substance Abuse Treatment (ICD-10-PCS; principal; 2021-06-09)
DX: F10.230 Alcohol dependence with withdrawal, uncomplicated (principal); F10.24 Alcohol dependence with alcohol-induced mood disorder; F10.282 Alcohol dependence with alcohol-induced sleep disorder; F10.280 Alcohol dependence with alcohol-induced anxiety disorder; F11.20 Opioid dependence, uncomplicated; F14.20 Cocaine dependence, uncomplicated; F12.20 Cannabis dependence, uncomplicated; F17.210 Nicotine dependence, cigarettes, uncomplicated; F39 Unspecified mood [affective] disorder; I10 Essential (primary) hypertension; K70.30 Alcoholic cirrhosis of liver without ascites; B18.2 Chronic viral hepatitis C; E80.6 Other disorders of bilirubin metabolism; R74.01 Elevation of levels of liver transaminase levels; M54.59 Other low back pain; G89.29 Other chronic pain; M19.90 Unspecified osteoarthritis, unspecified site; R26.2 Difficulty in walking, not elsewhere classified; Z99.89 Dependence on other enabling machines and devices; Z88.0 Allergy status to penicillin; Z86.69 Personal history of other diseases of the nervous system and sense organs; Z56.0 Unemployment, unspecified; Z59.00 Homelessness unspecified
CPT/HCPCS: 36415; 80053; 80076; 85027; 86780; C9803; J0735; U0003; U0005

== ENCOUNTER 2021-10-04 18:48 | Inpatient (IN) | payer OTHER ==
[2021-10-04 21:25] VITALS: BMI 25.0
[2021-10-04] MEDS ORDERED: NICOTINE POLACRILEX 2 MG GUM BUC PRN (23:15)
[2021-10-04] MEDS ORDERED: MAGNESIUM CITRATE 300 ML BOTTLE PO PRN (23:15)
[2021-10-04] MEDS ORDERED: ACETAMINOPHEN 325 MG TABLET (FP) PO PRN (23:15)
[2021-10-04] MEDS ORDERED: LOPERAMIDE HCL 2 MG CAPSULE PO PRN (23:15)
[2021-10-04] MEDS ORDERED: DICYCLOMINE HCL 10 MG CAPSULE PO PRN (23:15)
[2021-10-04] MEDS ORDERED: BENZOCAINE/MENTHOL (CHLORASEPTIC ) LOZENGE MM PRN (23:15)
[2021-10-04] MEDS ORDERED: ONDANSETRON *ODT* 4 MG TABLET SL PRN (23:15)
[2021-10-04] MEDS ORDERED: MAG HYDROX/AL HYDROX/SIMETH 30 ML UNIT-DOSE CUP PO PRN (23:15)
[2021-10-04] MEDS ORDERED: BISMUTH SUBSALICYLATE 524 MG/30 ML PO PRN (23:15)
[2021-10-04] MEDS ORDERED: MAGNESIUM HYDROX 2400MG/30ML ORAL SUSPENSION 30 ML CUP PO PRN (23:15)
[2021-10-04] MEDS ORDERED: chlordiazePOXIDE HCL 25 MG CAPSULE PO PRN (23:19)
[2021-10-05] MEDS: chlordiazePOXIDE HCL 25 MG CAPSULE PO SCH ×5 (03:00→22:08)
[2021-10-05] MEDS: amLODIPine BESYLATE 10 MG TABLET (FP) PO SCH ×2 (03:00→10:22)
[2021-10-05] MEDS: METHOCARBAMOL 500 MG TABLET PO PRN (07:05)
[2021-10-05] MEDS: IBUPROFEN 400 MG TABLET (FP) PO PRN ×2 (07:05→22:11)
[2021-10-05] MEDS ORDERED: methaDONE HCL 10 MG TABLET PO SCH (09:30)
[2021-10-05] MEDS ORDERED: methaDONE 40 MG, methaDONE 30 MG PO ONE (09:45)
[2021-10-05] MEDS ORDERED: methaDONE HCL 10 MG TABLET ONE (09:54)
[2021-10-05] MEDS ORDERED: methaDONE HCL 40 MG DISPERSABLE TABLET ONE (09:55)
[2021-10-05] MEDS: PRENATAL VITAMINS W/ FOLIC ACID TABLET (FP) PO SCH (10:22)
[2021-10-05 10:44] LABS: HEMATOCRIT 42.1 % (35.4-49); HEMOGLOBIN 14.3 GM/dL (11.7-16.9); MCH 33.2 pg (25.7-33.7); MEAN CELL VOLUME 97.8 fl (80-96); MEAN PLT VOLUME 11.1 fl (7.5-11.1); PLATELET COUNT 60 10^3/uL (134-434); RBC 4.31 M/mm3 (4.00-5.60); RDW 14.7 % (11.9-15.9)
[2021-10-05 11:08] LABS: CALCIUM 8.3 mg/dL (8.5-10.1)
[2021-10-05 11:09] LABS: BLOOD UREA NITROGEN 6.5 mg/dL (7-18)
[2021-10-05 11:10] LABS: CREATININE 0.5 mg/dL (0.55-1.3)
[2021-10-05 11:12] LABS: BILIRUBIN,TOTAL 3.8 mg/dL (0.2-1); TOT PROT 6.7 g/dl (6.4-8.2)
[2021-10-05] MEDS: hydrOXYzine PAMOATE 25 MG CAPSULE (FP) PO PRN (22:08)
[2021-10-05] MEDS: MELATONIN 5 MG TABLETS PO PRN (22:08)
[2021-10-05] MEDS: THIAMINE HCL 100 MG TABLET (FP) PO SCH (22:09)
[2021-10-05] MEDS: AMITRIPTYLINE HCL 25 MG TABLET PO SCH (22:09)
[2021-10-06] MEDS ORDERED: methaDONE HCL 10 MG TABLET ONE (04:29)
[2021-10-06] MEDS ORDERED: methaDONE HCL 40 MG DISPERSABLE TABLET ONE (04:29)
[2021-10-06] MEDS: chlordiazePOXIDE HCL 25 MG CAPSULE PO SCH ×4 (05:53→22:29)
[2021-10-06] MEDS: methaDONE 40 MG, methaDONE 30 MG PO SCH (05:54)
[2021-10-06] MEDS: METHOCARBAMOL 500 MG TABLET PO PRN ×2 (10:18→19:12)
[2021-10-06] MEDS: amLODIPine BESYLATE 10 MG TABLET (FP) PO SCH (10:18)
[2021-10-06] MEDS: PRENATAL VITAMINS W/ FOLIC ACID TABLET (FP) PO SCH (10:18)
[2021-10-06] MEDS: ACETAMINOPHEN 325 MG TABLET (FP) PO PRN (10:20)
[2021-10-06] MEDS: hydrOXYzine PAMOATE 25 MG CAPSULE (FP) PO PRN (19:12)
[2021-10-06] MEDS: AMITRIPTYLINE HCL 25 MG TABLET PO SCH (22:29)
[2021-10-06] MEDS: THIAMINE HCL 100 MG TABLET (FP) PO SCH (22:29)
[2021-10-06] MEDS: LISINOPRIL 10 MG TABLET PO SCH (22:29)
[2021-10-07] MEDS ORDERED: chlordiazePOXIDE HCL 10 MG CAPSULE PO PRN
[2021-10-07] MEDS ORDERED: methaDONE HCL 10 MG TABLET ONE (04:47)
[2021-10-07] MEDS ORDERED: methaDONE HCL 40 MG DISPERSABLE TABLET ONE (04:48)
[2021-10-07] MEDS: methaDONE 40 MG, methaDONE 30 MG PO SCH (05:45)
[2021-10-07] MEDS: chlordiazePOXIDE HCL 10 MG CAPSULE PO SCH ×4 (05:45→22:35)
[2021-10-07 06:06] LABS: SARS-CoV-2 NAA Not Detected (Not Detected)
[2021-10-07] MEDS: METHOCARBAMOL 500 MG TABLET PO PRN (10:25)
[2021-10-07] MEDS: PRENATAL VITAMINS W/ FOLIC ACID TABLET (FP) PO SCH (10:25)
[2021-10-07] MEDS: LISINOPRIL 10 MG TABLET PO SCH ×2 (10:25→22:35)
[2021-10-07] MEDS: amLODIPine BESYLATE 10 MG TABLET (FP) PO SCH (10:25)
[2021-10-07] MEDS: IBUPROFEN 400 MG TABLET (FP) PO PRN (10:26)
[2021-10-07] MEDS: LIDOCAINE 5% TOPICAL PATCH TP SCH (11:38)
[2021-10-07] MEDS: hydrOXYzine PAMOATE 25 MG CAPSULE (FP) PO PRN ×2 (18:55→22:35)
[2021-10-07] MEDS: ACETAMINOPHEN 325 MG TABLET (FP) PO PRN (18:56)
[2021-10-07] MEDS: THIAMINE HCL 100 MG TABLET (FP) PO SCH (22:34)
[2021-10-07] MEDS: AMITRIPTYLINE HCL 25 MG TABLET PO SCH (22:34)
[2021-10-07] MEDS: LIDOCAINE PATCH REMOVAL MC SCH (22:37)
[2021-10-08] MEDS ORDERED: methaDONE HCL 10 MG TABLET ONE (04:26)
[2021-10-08] MEDS ORDERED: methaDONE HCL 40 MG DISPERSABLE TABLET ONE (04:26)
[2021-10-08] MEDS: chlordiazePOXIDE HCL 10 MG CAPSULE PO SCH ×2 (05:31→17:51)
[2021-10-08] MEDS: hydrOXYzine PAMOATE 25 MG CAPSULE (FP) PO PRN ×3 (05:31→22:17)
[2021-10-08] MEDS: methaDONE 40 MG, methaDONE 30 MG PO SCH (05:32)
[2021-10-08] MEDS: METHOCARBAMOL 500 MG TABLET PO PRN (11:02)
[2021-10-08] MEDS: LISINOPRIL 10 MG TABLET PO SCH ×2 (11:02→22:17)
[2021-10-08] MEDS: PRENATAL VITAMINS W/ FOLIC ACID TABLET (FP) PO SCH (11:02)
[2021-10-08] MEDS: LIDOCAINE 5% TOPICAL PATCH TP SCH (11:03)
[2021-10-08] MEDS: amLODIPine BESYLATE 10 MG TABLET (FP) PO SCH (11:03)
[2021-10-08] MEDS ORDERED: ALBUTEROL SO4 HFA INHALER IH PRN (13:50)
[2021-10-08] MEDS: AMITRIPTYLINE HCL 25 MG TABLET PO SCH (22:17)
[2021-10-08] MEDS: THIAMINE HCL 100 MG TABLET (FP) PO SCH (22:17)
[2021-10-08] MEDS: MELATONIN 5 MG TABLETS PO PRN (22:17)
[2021-10-08] MEDS: IBUPROFEN 400 MG TABLET (FP) PO PRN (22:19)
[2021-10-08] MEDS: LIDOCAINE PATCH REMOVAL MC SCH (23:45)
[2021-10-09] MEDS ORDERED: methaDONE HCL 10 MG TABLET ONE (04:27)
[2021-10-09] MEDS ORDERED: methaDONE HCL 40 MG DISPERSABLE TABLET ONE (04:28)
[2021-10-09] MEDS ORDERED: chlordiazePOXIDE HCL 10 MG CAPSULE PO ONE (05:00)
[2021-10-09] MEDS: methaDONE 40 MG, methaDONE 30 MG PO SCH (06:27)
[2021-10-09] MEDS: METHOCARBAMOL 500 MG TABLET PO PRN (06:32)
[2021-10-09] MEDS: IBUPROFEN 400 MG TABLET (FP) PO PRN (06:32)
[2021-10-09] MEDS: amLODIPine BESYLATE 10 MG TABLET (FP) PO SCH (10:15)
[2021-10-09] MEDS: LISINOPRIL 10 MG TABLET PO SCH (10:15)
[2021-10-09] MEDS: LIDOCAINE 5% TOPICAL PATCH TP SCH (10:16)
[2021-10-09] MEDS: PRENATAL VITAMINS W/ FOLIC ACID TABLET (FP) PO SCH (10:16)
[2021-10-09 13:11] VITALS: BP 114/71; PULSE 71; TEMP 96.6
== END 2021-10-09 15:45 | disposition other institution (70) | DRG 773 ==
LOC: YASAS 18:48 → Y6N 10-05 02:47
PROVIDERS: ADMIT Allergy & Immunology; ATTEND Allergy & Immunology
PROC: HZ2ZZZZ Detoxification Services for Substance Abuse Treatment (ICD-10-PCS; principal; 2021-10-05)
DX: F10.230 Alcohol dependence with withdrawal, uncomplicated (principal); F14.20 Cocaine dependence, uncomplicated; F11.20 Opioid dependence, uncomplicated; F17.210 Nicotine dependence, cigarettes, uncomplicated; F19.24 Other psychoactive substance dependence with psychoactive substance-induced mood disorder; F31.9 Bipolar disorder, unspecified; F34.1 Dysthymic disorder; I10 Essential (primary) hypertension; K70.30 Alcoholic cirrhosis of liver without ascites; B18.2 Chronic viral hepatitis C; M54.50 Low back pain, unspecified; G89.29 Other chronic pain; Z99.89 Dependence on other enabling machines and devices; Z88.0 Allergy status to penicillin; Z56.0 Unemployment, unspecified; Z59.00 Homelessness unspecified
CPT/HCPCS: 36415; 71101-TC-LT-FY; 80053; 82962; 84520; 85027; 86780; C9803-CS; U0003; U0005

== ENCOUNTER 2021-10-09 16:04 | Inpatient (IN) | payer OTHER ==
[~2021-10-09 16:04] MED LIST: ACETAMINOPHEN 325 MG TABLET (FP) PO PRN; IBUPROFEN 400 MG TABLET (FP) PO PRN; LOPERAMIDE HCL 2 MG CAPSULE PO PRN; MAG HYDROX/AL HYDROX/SIMETH 30 ML UNIT-DOSE CUP PO PRN; MAGNESIUM CITRATE 300 ML BOTTLE PO PRN; P-EPHED 60MG/TRIPROLIDI 2.5MG TABLET PO PRN; guaiFENesin 200 MG/10 ML 10 ML UNIT-DOSE CUPS PO PRN
[2021-10-09] MEDS: hydrOXYzine PAMOATE 25 MG CAPSULE (FP) PO SCH ×2 (18:58→21:13)
[2021-10-09] MEDS: THIAMINE HCL 100 MG TABLET (FP) PO SCH (21:13)
[2021-10-09] MEDS: MELATONIN 5 MG TABLETS PO SCH (21:13)
[2021-10-09] MEDS: LIDOCAINE PATCH REMOVAL MC SCH (21:13)
[2021-10-09] MEDS: LISINOPRIL 10 MG TABLET PO SCH (21:13)
[2021-10-09] MEDS: AMITRIPTYLINE HCL 25 MG TABLET PO SCH (22:11)
[2021-10-09] MEDS: NICOTINE 10 MG CARTRIDGE (INHALER) IH PRN (22:12)
[2021-10-10] MEDS ORDERED: methaDONE HCL 10 MG TABLET PO SCH (06:00)
[2021-10-10] MEDS ORDERED: methaDONE HCL 10 MG TABLET ONE (06:05)
[2021-10-10] MEDS ORDERED: methaDONE HCL 40 MG DISPERSABLE TABLET ONE (06:06)
[2021-10-10] MEDS: hydrOXYzine PAMOATE 25 MG CAPSULE (FP) PO SCH ×5 (06:23→21:22)
[2021-10-10] MEDS: methaDONE 40 MG, methaDONE 30 MG PO SCH (06:23)
[2021-10-10] MEDS: LISINOPRIL 10 MG TABLET PO SCH ×2 (10:15→21:22)
[2021-10-10] MEDS: NICOTINE 7 MG/24 HOURS TOPICAL PATCH TD SCH (10:15)
[2021-10-10] MEDS: amLODIPine BESYLATE 10 MG TABLET (FP) PO SCH (10:15)
[2021-10-10] MEDS: PRENATAL VITAMINS W/ FOLIC ACID TABLET (FP) PO SCH (10:15)
[2021-10-10] MEDS: LIDOCAINE 5% TOPICAL PATCH TP SCH (10:15)
[2021-10-10] MEDS: MELATONIN 5 MG TABLETS PO SCH (21:22)
[2021-10-10] MEDS: AMITRIPTYLINE HCL 25 MG TABLET PO SCH (21:22)
[2021-10-10] MEDS: LIDOCAINE PATCH REMOVAL MC SCH (21:22)
[2021-10-10] MEDS: THIAMINE HCL 100 MG TABLET (FP) PO SCH (21:22)
[2021-10-11] MEDS ORDERED: methaDONE HCL 10 MG TABLET ONE (04:49)
[2021-10-11] MEDS ORDERED: methaDONE HCL 40 MG DISPERSABLE TABLET ONE (04:50)
[2021-10-11] MEDS: methaDONE 40 MG, methaDONE 30 MG PO SCH (06:09)
[2021-10-11] MEDS: hydrOXYzine PAMOATE 25 MG CAPSULE (FP) PO SCH ×5 (06:10→21:10)
[2021-10-11] MEDS: LISINOPRIL 10 MG TABLET PO SCH ×2 (10:03→21:10)
[2021-10-11] MEDS: amLODIPine BESYLATE 10 MG TABLET (FP) PO SCH (10:03)
[2021-10-11] MEDS: PRENATAL VITAMINS W/ FOLIC ACID TABLET (FP) PO SCH (10:03)
[2021-10-11] MEDS: NICOTINE 7 MG/24 HOURS TOPICAL PATCH TD SCH (10:03)
[2021-10-11] MEDS: LIDOCAINE 5% TOPICAL PATCH TP SCH (10:04)
[2021-10-11] MEDS: MELATONIN 5 MG TABLETS PO SCH (21:10)
[2021-10-11] MEDS: AMITRIPTYLINE HCL 25 MG TABLET PO SCH (21:10)
[2021-10-11] MEDS: THIAMINE HCL 100 MG TABLET (FP) PO SCH (21:10)
[2021-10-11] MEDS: LIDOCAINE PATCH REMOVAL MC SCH (21:11)
[2021-10-12] MEDS ORDERED: methaDONE HCL 10 MG TABLET ONE (02:40)
[2021-10-12] MEDS ORDERED: methaDONE HCL 40 MG DISPERSABLE TABLET ONE (02:41)
[2021-10-12] MEDS: methaDONE 40 MG, methaDONE 30 MG PO SCH (06:11)
[2021-10-12] MEDS: hydrOXYzine PAMOATE 25 MG CAPSULE (FP) PO SCH ×5 (06:11→21:17)
[2021-10-12] MEDS: PRENATAL VITAMINS W/ FOLIC ACID TABLET (FP) PO SCH (10:24)
[2021-10-12] MEDS: NICOTINE 7 MG/24 HOURS TOPICAL PATCH TD SCH (10:24)
[2021-10-12] MEDS: LIDOCAINE 5% TOPICAL PATCH TP SCH (10:24)
[2021-10-12] MEDS: amLODIPine BESYLATE 10 MG TABLET (FP) PO SCH (10:24)
[2021-10-12] MEDS: LISINOPRIL 10 MG TABLET PO SCH ×2 (10:24→21:17)
[2021-10-12] MEDS: THIAMINE HCL 100 MG TABLET (FP) PO SCH (21:17)
[2021-10-12] MEDS: LIDOCAINE PATCH REMOVAL MC SCH (21:17)
[2021-10-12] MEDS: AMITRIPTYLINE HCL 25 MG TABLET PO SCH (21:17)
[2021-10-12] MEDS: MELATONIN 5 MG TABLETS PO SCH (21:17)
[2021-10-13] MEDS ORDERED: methaDONE HCL 40 MG DISPERSABLE TABLET ONE (05:41)
[2021-10-13] MEDS ORDERED: methaDONE HCL 10 MG TABLET ONE (05:41)
[2021-10-13] MEDS: methaDONE 40 MG, methaDONE 30 MG PO SCH (06:19)
[2021-10-13] MEDS: hydrOXYzine PAMOATE 25 MG CAPSULE (FP) PO SCH ×5 (06:20→21:16)
[2021-10-13] MEDS: NICOTINE 7 MG/24 HOURS TOPICAL PATCH TD SCH (09:19)
[2021-10-13] MEDS: PRENATAL VITAMINS W/ FOLIC ACID TABLET (FP) PO SCH (09:19)
[2021-10-13] MEDS: LISINOPRIL 10 MG TABLET PO SCH ×2 (09:20→21:17)
[2021-10-13] MEDS: LIDOCAINE 5% TOPICAL PATCH TP SCH (09:20)
[2021-10-13] MEDS: amLODIPine BESYLATE 10 MG TABLET (FP) PO SCH (09:20)
[2021-10-13 13:07] LABS: SARS-CoV-2 NAA Not Detected (Not Detected)
[2021-10-13 20:33] VITALS: BMI 24.7
[2021-10-13] MEDS: AMITRIPTYLINE HCL 25 MG TABLET PO SCH (21:16)
[2021-10-13] MEDS: LIDOCAINE PATCH REMOVAL MC SCH (21:17)
[2021-10-13] MEDS: MELATONIN 5 MG TABLETS PO SCH (21:17)
[2021-10-13] MEDS: THIAMINE HCL 100 MG TABLET (FP) PO SCH (21:17)
[2021-10-14] MEDS ORDERED: methaDONE HCL 40 MG DISPERSABLE TABLET ONE (04:15)
[2021-10-14] MEDS ORDERED: methaDONE HCL 10 MG TABLET ONE (04:15)
[2021-10-14] MEDS: hydrOXYzine PAMOATE 25 MG CAPSULE (FP) PO SCH ×5 (05:52→21:16)
[2021-10-14] MEDS: methaDONE 40 MG, methaDONE 30 MG PO SCH (05:52)
[2021-10-14] MEDS: PRENATAL VITAMINS W/ FOLIC ACID TABLET (FP) PO SCH (09:08)
[2021-10-14] MEDS: LIDOCAINE 5% TOPICAL PATCH TP SCH (09:08)
[2021-10-14] MEDS: LISINOPRIL 10 MG TABLET PO SCH ×3 (09:08→21:16)
[2021-10-14] MEDS: NICOTINE 7 MG/24 HOURS TOPICAL PATCH TD SCH (09:08)
[2021-10-14] MEDS: amLODIPine BESYLATE 10 MG TABLET (FP) PO SCH (09:08)
[2021-10-14] MEDS: THIAMINE HCL 100 MG TABLET (FP) PO SCH (21:16)
[2021-10-14] MEDS: AMITRIPTYLINE HCL 25 MG TABLET PO SCH (21:16)
[2021-10-14] MEDS: MELATONIN 5 MG TABLETS PO SCH (21:16)
[2021-10-14] MEDS: LIDOCAINE PATCH REMOVAL MC SCH (21:17)
[2021-10-15] MEDS ORDERED: methaDONE HCL 10 MG TABLET ONE (04:07)
[2021-10-15] MEDS ORDERED: methaDONE HCL 40 MG DISPERSABLE TABLET ONE (04:07)
[2021-10-15] MEDS: ALBUTEROL SO4 HFA INHALER IH PRN (05:57)
[2021-10-15] MEDS: methaDONE 40 MG, methaDONE 30 MG PO SCH (05:58)
[2021-10-15] MEDS: hydrOXYzine PAMOATE 25 MG CAPSULE (FP) PO SCH ×6 (05:58→21:08)
[2021-10-15] MEDS: amLODIPine BESYLATE 10 MG TABLET (FP) PO SCH (09:55)
[2021-10-15] MEDS: LISINOPRIL 10 MG TABLET PO SCH ×2 (09:55→21:08)
[2021-10-15] MEDS: PRENATAL VITAMINS W/ FOLIC ACID TABLET (FP) PO SCH (09:55)
[2021-10-15] MEDS: LIDOCAINE 5% TOPICAL PATCH TP SCH (09:56)
[2021-10-15] MEDS: NICOTINE 7 MG/24 HOURS TOPICAL PATCH TD SCH (09:57)
[2021-10-15] MEDS: MAGNESIUM HYDROX 2400MG/30ML ORAL SUSPENSION 30 ML CUP PO PRN (13:49)
[2021-10-15] MEDS: MELATONIN 5 MG TABLETS PO SCH (21:08)
[2021-10-15] MEDS: LIDOCAINE PATCH REMOVAL MC SCH (21:08)
[2021-10-15] MEDS: THIAMINE HCL 100 MG TABLET (FP) PO SCH (21:08)
[2021-10-15] MEDS: AMITRIPTYLINE HCL 25 MG TABLET PO SCH (21:08)
[2021-10-16] MEDS ORDERED: methaDONE HCL 10 MG TABLET ONE (04:48)
[2021-10-16] MEDS ORDERED: methaDONE HCL 40 MG DISPERSABLE TABLET ONE (04:49)
[2021-10-16] MEDS: methaDONE 40 MG, methaDONE 30 MG PO SCH (06:27)
[2021-10-16] MEDS: hydrOXYzine PAMOATE 25 MG CAPSULE (FP) PO SCH ×5 (06:29→21:20)
[2021-10-16] MEDS: NICOTINE 7 MG/24 HOURS TOPICAL PATCH TD SCH (10:00)
[2021-10-16] MEDS: PRENATAL VITAMINS W/ FOLIC ACID TABLET (FP) PO SCH (10:00)
[2021-10-16] MEDS: LISINOPRIL 10 MG TABLET PO SCH ×2 (10:00→21:20)
[2021-10-16] MEDS: LIDOCAINE 5% TOPICAL PATCH TP SCH (10:00)
[2021-10-16] MEDS: amLODIPine BESYLATE 10 MG TABLET (FP) PO SCH (10:00)
[2021-10-16] MEDS: MAGNESIUM HYDROX 2400MG/30ML ORAL SUSPENSION 30 ML CUP PO PRN (10:01)
[2021-10-16] MEDS: MELATONIN 5 MG TABLETS PO SCH (21:19)
[2021-10-16] MEDS: THIAMINE HCL 100 MG TABLET (FP) PO SCH (21:20)
[2021-10-16] MEDS: AMITRIPTYLINE HCL 25 MG TABLET PO SCH (21:20)
[2021-10-16] MEDS: LIDOCAINE PATCH REMOVAL MC SCH (21:20)
[2021-10-17] MEDS ORDERED: methaDONE HCL 40 MG DISPERSABLE TABLET ONE (04:07)
[2021-10-17] MEDS ORDERED: methaDONE HCL 10 MG TABLET ONE (04:07)
[2021-10-17] MEDS: hydrOXYzine PAMOATE 25 MG CAPSULE (FP) PO SCH ×5 (06:09→21:20)
[2021-10-17] MEDS: methaDONE 40 MG, methaDONE 30 MG PO SCH (06:09)
[2021-10-17] MEDS: LIDOCAINE 5% TOPICAL PATCH TP SCH (09:57)
[2021-10-17] MEDS: NICOTINE 7 MG/24 HOURS TOPICAL PATCH TD SCH (09:58)
[2021-10-17] MEDS: PRENATAL VITAMINS W/ FOLIC ACID TABLET (FP) PO SCH (09:58)
[2021-10-17] MEDS: LISINOPRIL 10 MG TABLET PO SCH ×2 (09:58→21:21)
[2021-10-17] MEDS: amLODIPine BESYLATE 10 MG TABLET (FP) PO SCH (09:58)
[2021-10-17] MEDS: ALBUTEROL SO4 HFA INHALER IH PRN (10:01)
[2021-10-17] MEDS: LIDOCAINE PATCH REMOVAL MC SCH (21:21)
[2021-10-17] MEDS: MELATONIN 5 MG TABLETS PO SCH (21:21)
[2021-10-17] MEDS: THIAMINE HCL 100 MG TABLET (FP) PO SCH (21:21)
[2021-10-17] MEDS: AMITRIPTYLINE HCL 25 MG TABLET PO SCH (21:48)
[2021-10-18] MEDS ORDERED: methaDONE HCL 10 MG TABLET ONE (04:14)
[2021-10-18] MEDS ORDERED: methaDONE HCL 40 MG DISPERSABLE TABLET ONE (04:15)
[2021-10-18] MEDS: hydrOXYzine PAMOATE 25 MG CAPSULE (FP) PO SCH ×5 (06:04→21:18)
[2021-10-18] MEDS: methaDONE 40 MG, methaDONE 30 MG PO SCH (06:05)
[2021-10-18] MEDS: ALBUTEROL SO4 HFA INHALER IH PRN (07:42)
[2021-10-18] MEDS: LIDOCAINE 5% TOPICAL PATCH TP SCH (09:58)
[2021-10-18] MEDS: NICOTINE 7 MG/24 HOURS TOPICAL PATCH TD SCH (09:58)
[2021-10-18] MEDS: PRENATAL VITAMINS W/ FOLIC ACID TABLET (FP) PO SCH (09:58)
[2021-10-18] MEDS: amLODIPine BESYLATE 10 MG TABLET (FP) PO SCH (09:58)
[2021-10-18] MEDS: LISINOPRIL 10 MG TABLET PO SCH ×2 (09:58→21:18)
[2021-10-18] MEDS: THIAMINE HCL 100 MG TABLET (FP) PO SCH (21:18)
[2021-10-18] MEDS: LIDOCAINE PATCH REMOVAL MC SCH (21:18)
[2021-10-18] MEDS: MELATONIN 5 MG TABLETS PO SCH (21:18)
[2021-10-18] MEDS: AMITRIPTYLINE HCL 25 MG TABLET PO SCH (21:18)
[2021-10-19] MEDS ORDERED: methaDONE HCL 40 MG DISPERSABLE TABLET ONE (04:55)
[2021-10-19] MEDS ORDERED: methaDONE HCL 10 MG TABLET ONE (04:55)
[2021-10-19] MEDS: hydrOXYzine PAMOATE 25 MG CAPSULE (FP) PO SCH ×5 (06:13→21:07)
[2021-10-19] MEDS: methaDONE 40 MG, methaDONE 30 MG PO SCH (06:14)
[2021-10-19] MEDS: amLODIPine BESYLATE 10 MG TABLET (FP) PO SCH (10:14)
[2021-10-19] MEDS: LISINOPRIL 10 MG TABLET PO SCH ×2 (10:14→21:07)
[2021-10-19] MEDS: PRENATAL VITAMINS W/ FOLIC ACID TABLET (FP) PO SCH (10:14)
[2021-10-19] MEDS: LIDOCAINE 5% TOPICAL PATCH TP SCH (10:16)
[2021-10-19] MEDS: NICOTINE 7 MG/24 HOURS TOPICAL PATCH TD SCH (10:17)
[2021-10-19] MEDS: MELATONIN 5 MG TABLETS PO SCH (21:06)
[2021-10-19] MEDS: THIAMINE HCL 100 MG TABLET (FP) PO SCH (21:06)
[2021-10-19] MEDS: LIDOCAINE PATCH REMOVAL MC SCH (21:07)
[2021-10-19] MEDS: AMITRIPTYLINE HCL 25 MG TABLET PO SCH (21:07)
[2021-10-20] MEDS ORDERED: methaDONE HCL 40 MG DISPERSABLE TABLET ONE (03:11)
[2021-10-20] MEDS ORDERED: methaDONE HCL 10 MG TABLET ONE (03:11)
[2021-10-20] MEDS: methaDONE 40 MG, methaDONE 30 MG PO SCH (06:47)
[2021-10-20] MEDS: hydrOXYzine PAMOATE 25 MG CAPSULE (FP) PO SCH ×5 (06:48→21:10)
[2021-10-20] MEDS: NICOTINE 10 MG CARTRIDGE (INHALER) IH PRN (08:55)
[2021-10-20] MEDS: amLODIPine BESYLATE 10 MG TABLET (FP) PO SCH (10:07)
[2021-10-20] MEDS: LISINOPRIL 10 MG TABLET PO SCH ×2 (10:07→21:10)
[2021-10-20] MEDS: PRENATAL VITAMINS W/ FOLIC ACID TABLET (FP) PO SCH (10:08)
[2021-10-20] MEDS: NICOTINE 7 MG/24 HOURS TOPICAL PATCH TD SCH (10:08)
[2021-10-20] MEDS: LIDOCAINE 5% TOPICAL PATCH TP SCH (10:08)
[2021-10-20] MEDS: LIDOCAINE PATCH REMOVAL MC SCH (21:10)
[2021-10-20] MEDS: MELATONIN 5 MG TABLETS PO SCH (21:10)
[2021-10-20] MEDS: THIAMINE HCL 100 MG TABLET (FP) PO SCH (21:10)
[2021-10-20] MEDS: AMITRIPTYLINE HCL 25 MG TABLET PO SCH (21:10)
[2021-10-21] MEDS ORDERED: methaDONE HCL 10 MG TABLET ONE (03:23)
[2021-10-21] MEDS ORDERED: methaDONE HCL 40 MG DISPERSABLE TABLET ONE (03:23)
[2021-10-21] MEDS: methaDONE 40 MG, methaDONE 30 MG PO SCH (06:21)
[2021-10-21] MEDS: hydrOXYzine PAMOATE 25 MG CAPSULE (FP) PO SCH ×5 (06:22→21:02)
[2021-10-21] MEDS: LIDOCAINE 5% TOPICAL PATCH TP SCH (10:27)
[2021-10-21] MEDS: NICOTINE 7 MG/24 HOURS TOPICAL PATCH TD SCH (10:28)
[2021-10-21] MEDS: amLODIPine BESYLATE 10 MG TABLET (FP) PO SCH (10:28)
[2021-10-21] MEDS: PRENATAL VITAMINS W/ FOLIC ACID TABLET (FP) PO SCH (10:28)
[2021-10-21] MEDS: LISINOPRIL 10 MG TABLET PO SCH ×2 (10:28→21:02)
[2021-10-21] MEDS: ALBUTEROL SO4 HFA INHALER IH PRN (10:29)
[2021-10-21] MEDS: NICOTINE 10 MG CARTRIDGE (INHALER) IH PRN (14:10)
[2021-10-21] MEDS: AMITRIPTYLINE HCL 25 MG TABLET PO SCH (21:02)
[2021-10-21] MEDS: THIAMINE HCL 100 MG TABLET (FP) PO SCH (21:02)
[2021-10-21] MEDS: MELATONIN 5 MG TABLETS PO SCH (21:02)
[2021-10-21] MEDS: LIDOCAINE PATCH REMOVAL MC SCH (21:02)
[2021-10-22] MEDS ORDERED: methaDONE HCL 40 MG DISPERSABLE TABLET ONE (04:14)
[2021-10-22] MEDS ORDERED: methaDONE HCL 10 MG TABLET ONE (04:14)
[2021-10-22] MEDS: methaDONE 40 MG, methaDONE 30 MG PO SCH (06:25)
[2021-10-22] MEDS: hydrOXYzine PAMOATE 25 MG CAPSULE (FP) PO SCH ×3 (06:26→14:08)
[2021-10-22 07:20] VITALS: TEMP 97.7
[2021-10-22] MEDS: LISINOPRIL 10 MG TABLET PO SCH (10:40)
[2021-10-22] MEDS: NICOTINE 10 MG CARTRIDGE (INHALER) IH PRN (10:40)
[2021-10-22] MEDS: PRENATAL VITAMINS W/ FOLIC ACID TABLET (FP) PO SCH (10:40)
[2021-10-22] MEDS: amLODIPine BESYLATE 10 MG TABLET (FP) PO SCH (10:40)
[2021-10-22] MEDS: NICOTINE 7 MG/24 HOURS TOPICAL PATCH TD SCH (10:41)
[2021-10-22] MEDS: LIDOCAINE 5% TOPICAL PATCH TP SCH (10:42)
[2021-10-22 17:22] VITALS: BP 153/81; PULSE 95
== END 2021-10-22 18:28 | disposition home or self-care (01) | DRG 772 ==
LOC: YASAS 16:04 → Y3W 16:05
PROVIDERS: ADMIT Allergy & Immunology; ATTEND Allergy & Immunology
PROC: HZ42ZZZ Group Counseling for Substance Abuse Treatment, Cognitive-Behavioral (ICD-10-PCS; principal; 2021-10-09)
DX: F10.20 Alcohol dependence, uncomplicated (principal); F11.20 Opioid dependence, uncomplicated; F14.20 Cocaine dependence, uncomplicated; F17.210 Nicotine dependence, cigarettes, uncomplicated; I10 Essential (primary) hypertension; B18.2 Chronic viral hepatitis C; J45.909 Unspecified asthma, uncomplicated; K70.30 Alcoholic cirrhosis of liver without ascites; R60.0 Localized edema; Z99.89 Dependence on other enabling machines and devices
CPT/HCPCS: C9803-CS; U0003; U0005

== ENCOUNTER 2021-10-13 11:56 | Emergency (ER) | payer OTHER ==
[2021-10-13 12:11] VITALS: TEMP 98.2; BMI 24.3
[2021-10-13 14:35] LABS: BASO % 3.9 % (0-2.0); EOS % 1.9 % (0-4.5); HEMATOCRIT 40.3 % (35.4-49); HEMOGLOBIN 13.3 GM/dL (11.7-16.9); LYMPH % 21.3 % (8-40); MCH 33.4 pg (25.7-33.7); MCHC 33.1 g/dl (32.0-35.9); MEAN PLT VOLUME 11.5 fl (7.5-11.1); MONO % 15.6 % (3.8-10.2); NEUT % 57.3 % (42.8-82.8); PLATELET COUNT 117 10^3/uL (134-434); RBC 3.99 M/mm3 (4.00-5.60); RDW 13.6 % (11.9-15.9); WHITE BLOOD COUNT 6.2 K/mm3 (4.0-10.0)
[2021-10-13 14:47] LABS: INR 1.26 (0.83-1.09); PROTHROMBIN TIME (PATIENT) 14.5 SEC (9.7-13.0)
[2021-10-13 14:50] LABS: ACTIVATED PTT 33.6 SECONDS (25.2-36.5)
[2021-10-13 14:59] LABS: CALCIUM 8.5 mg/dL (8.5-10.1)
[2021-10-13 15:00] LABS: BLOOD UREA NITROGEN 10.4 mg/dL (7-18)
[2021-10-13 15:03] LABS: CREATININE 0.7 mg/dL (0.55-1.3)
[2021-10-13 15:04] LABS: BILIRUBIN,TOTAL 1.6 mg/dL (0.2-1); TOT PROT 6.8 g/dl (6.4-8.2)
[2021-10-13 16:02] VITALS: BP 107/70; PULSE 64
== END 2021-10-13 18:43 ==
LOC: JER 11:56
DX: R18.8 Other ascites (principal)
CPT/HCPCS: 36415; 71045-TC-FY; 76705-TC; 80053; 80307; 83690; 85025; 85610; 85730; 86704; 86707; 86708; 86803; 87350; 87380; 87517; 87522; 93005; 93010; 99285-25